=== PATIENT | female | born 1935 | race Caucasian/White ===

== ENCOUNTER 2017-08-07 18:26 | Inpatient (IN) | payer MEDICARE ==
[~2017-08-07] VITALS: Ht 167.6 cm; Wt 68.7 kg
[2017-08-07] VITALS (10 sets, daily range): BP systolic 159–178; BP diastolic 77–104; PULSE 70–92; RESP 16–22; TEMP 98.6; O2SAT 97–100
[~2017-08-07 18:26] MED LIST: PROPOFOL 200 MG/20 ML AMP IV ONE; SODIUM CHLORIDE 0.9% 20 ML VIAL IV ONE; VECURONIUM BROMIDE 20 MG VIAL IV ONE
[2017-08-07] MEDS ORDERED: SODIUM CHLOR 0.9% 1000 ML INJ 1,000 ML IV ONE (18:45)
--- NOTE | 2017-08-07 19:01 | RADRPT ---
EXAM DATE/TIME: 08/07/2017 18:39 [facility] COMPARISON: No previous studies available for comparison. INDICATIONS : Stroke alert, right sided paralysis, unresponsive. RADIATION DOSE: 56.35 CTDIvol (mGy) MEDICAL HISTORY : Non-responsive. SURGICAL HISTORY : Non-responsive. ENCOUNTER: Initial ACUITY: 1 day PAIN SCALE: Non-responsive LOCATION: cranial TECHNIQUE: Multiple contiguous axial images were obtained of the head. Using automated exposure control and adj ustment of the mA and/or kV according to patient size, radiation dose was kept as low as reasonably a chievable to obtain optimal diagnostic quality images. DICOM format image data is available electro nically for review and comparison. FINDINGS: CEREBRUM: The ventricles are normal for age. No evidence of midline shift, mass lesion, hemorrhage or acute in farction. No extra-axial fluid collections are seen. Chronic low attenuation seen in the periventric ular white matter. POSTERIOR FOSSA: The cerebellum and brainstem are intact. The 4th ventricle is midline. The cerebellopontine angle i s unremarkable. EXTRACRANIAL: The visualized portion of the orbits is intact. SKULL: The calvaria is intact. No evidence of skull fracture. CONCLUSION: 1. No acute intracranial abnormality demonstrated. 2. Chronic white matter changes. 3. 4. Report called to Dr. Lira at 6: 5. 57 PM. Eladio Mcdonald MD on August 07, 2017 at 18:58 Board Certified Radiologist. This report was verified electronically.
[2017-08-07] MEDS ORDERED: IOHEXOL 350 MG/ML 10 ML VIAL (for RAD DIAG) IVCONTRAST ONE (19:02)
--- NOTE | 2017-08-07 19:11 | PD ---
HPI Chief Complaint: Stroke Alert Time Seen by Provider: 18:45 Travel History International Travel<30 days: No Contact w/Intl Traveler<30days: No Traveled to known affect area: No History of Present Illness HPI This patient presents as a stroke alert. I'm told that at 6 PM she was eating dinner and then abruptly dropped her silverware and slumped over to the side. I 'm told she takes no blood thinners and has no history of stroke but I was not able to verify that with family members is none are here at the present time. This patient is critically ill. She has no airway. She's clenched her teeth and is gagging on her secretions. She is aphasia so I can get no history or review of systems from her. PFSH Past Medical History Medical History: Unable to Obtain Tetanus Vaccination: Unknown Influenza Vaccination: No ?: Unknown Past Surgical History Surgical History: Unable to Obtain Social History Alcohol Use: No Tobacco Use: No Substance Use: No Allergies-Medications (Allergen,Severity, Reaction): Coded Allergies: No Allergy Information Available (Unverified , 08/07/17) Reported Meds & Prescriptions Reported Meds & Active Scripts Active Active Prescriptions or Reported Medications Unobtainable Review of Systems ROS Limitations: Clinical Condition, Altered Mental Status, Unresponsive Physical Exam Narrative GENERAL: Well-nourished, well-developed patient in no apparent distress. SKIN: Focused skin assessment reveals no rash and nodules. Skin is Warm and dry. HEAD: Atraumatic. Normocephalic. EYES: Pupils equal and round. No scleral icterus. No injection or drainage. ENT: No nasal bleeding or discharge. Mucous membranes pink and moist. NECK: Trachea midline. No JVD. CARDIOVASCULAR: Regular rate and rhythm. No murmur appreciated. RESPIRATORY: No accessory muscle use. Clear to auscultation. Breath sounds equal bilaterally. GASTROINTESTINAL: Abdomen soft, non-tender, nondistended. Hepatic and splenic margins not palpable. MUSCULOSKELETAL: No obvious deformities. No clubbing. No cyanosis. No edema. NEUROLOGICAL: Patient is looking around but will not speak. Her left arm and leg will withdraw to pain stimuli. I can't get her right arm or leg to do much. She has no gag reflex PSYCHIATRIC: Impossible to test mood or affect or insight or judgment . Data Data Last Documented VS Vital Signs Date Time Temp Pulse Resp B/P (MAP) Pulse Ox O2 Delivery O2 Flow Rate FiO2 08/07/17 18:35 98.6 92 22 177/100 (125) 98 Orders Orders Diet Npo (08/07/17 Dinner) Activity Bed Rest (08/07/17 ) Electrocardiogram (08/07/17 ) I-Stat Creatinine (08/07/17 18:45) I-Stat Profile (08/07/17 18:45) Prothrombin Time / Inr (Pt) (08/07/17 18:45) Act Partial Throm Time (Ptt) (08/07/17 18:45) Complete Blood Count With Diff (08/07/17 18:45) Fibrinogen (08/07/17 18:45) Creatine Kinase (Cpk) (08/07/17 18:45) Troponin I (08/07/17 18:45) Ua Includes Microscopic (08/07/17 18:45) Drug Screen, Random Urine (08/07/17 18:45) Type And Screen (08/07/17 18:45) Ct Brain W/O Iv Contrast(Rout) (08/07/17 ) Chest, Single Ap (08/07/17 ) Cta Brain W Iv Contrast W 3d (08/07/17 18:45) Cta Neck W Iv Contrast W 3d (08/07/17 18:45) Consult Neurology (08/07/17 ) Blood Glucose (08/07/17 18:45) Ecg Monitoring (08/07/17 18:45) Neuro Checks Q2HX12,Q4H (08/07/17 18:45) Nursing Bedside Swallow Assess .ONCE (08/07/17 18:45) Iv Access Insert/Monitor (08/07/17 18:45) NPO (08/07/17 18:45) Oximetry (08/07/17 18:45) Oxygen Administration (08/07/17 18:45) Sodium Chlor 0.9% 1000 Ml Inj (Ns 1000 M (08/07/17 18:45) Resp Oxygen Faustino C Titrat 1-4 L (08/07/17 18:45) Cath For Specimen (08/07/17 18:45) Iohexol 350 Inj (Omnipaque 350 Inj) (08/07/17 19:02) MDM Medical Decision Making Medical Screen Exam Complete: Yes Emergency Medical Condition: Yes Medical Record Reviewed: Yes Differential Diagnosis Hemorrhagic stroke, ischemic stroke, loss of airway Narrative Course I have reviewed the patient's electronic medical record. This patient emergently needs an airway That is priority #1 and there will be delaying going to CT because airway takes precedence INTUBATION: The patient was put in optimal position for the procedure. Rapid sequence intubation was initiated by me using 20 milligrams of etomidate IV and 100 milligrams of succinylcholine IV. The patient was intubated with a 7.5 cuffed endotracheal tube. Tube placement was confirmed by visualization of the tube and balloon passing through the cords, capnometry and subsequent chest x-ray. Breath sounds were equal and well aerated bilaterally postintubation. No breath sounds over stomach. Patient tolerated procedure well. 2 IVs placed Now were taking her emergently to CT scan Case is discussed with Dr. Lira, neurologist database consultant for stroke alert CT brain is come back negative for bleed. Dr. Lira this discussing with family whether to do TPA were not Is ending and case reviewed in detail with Dr. Adorno who will take over the case and assist with disposition which will obviously be intensive care admission on ventilator Diagnosis Primary Impression: Acute ischemic stroke Additional Impression: Airway compromise Admitting Information Admitting Physician Requests: Admit Scripts Unable to Obtain Active Prescriptions or Reported Meds Terrell Go MD Aug 07, 2017 19:10
[2017-08-07 19:19] LABS: AUTOMATED NEUTROPHIL # 4.5 TH/MM3 (1.8-7.7); BASOPHIL # 0.1 TH/MM3 (0-0.2); BASOPHIL % 1.2 % (0.0-2.0); EOSINOPHIL # 0.3 TH/MM3 (0-0.4); EOSINOPHIL % 3.8 % (0.0-4.0); HEMATOCRIT 30.3 % (35.0-46.0); HEMOGLOBIN 9.9 GM/DL (11.6-15.3); LYMPH % 27.2 % (9.0-44.0); MEAN CELL VOLUME 84.5 FL (80.0-100.0); MEAN CORPUSCULAR HEMOGLOBIN 27.5 PG (27.0-34.0); MEAN CORPUSCULAR HGB CONC 32.5 % (32.0-36.0); MEAN PLATELET VOLUME 9.2 FL (7.0-11.0); MONO % 8.1 % (0.0-8.0); MONOCYTE # 0.6 TH/MM3 (0-0.9); NEUT % 59.7 % (16.0-70.0); PLATELET COUNT 251 TH/MM3 (150-450); RED BLOOD COUNT 3.59 MIL/MM3 (4.00-5.30); RED CELL DISTRIBUTION WIDTH 12.9 % (11.6-17.2); WHITE BLOOD COUNT 7.5 TH/MM3 (4.0-11.0)
--- NOTE | 2017-08-07 19:20 | RADRPT ---
EXAM DATE/TIME: 08/07/2017 18:49 [facility] COMPARISON: No previous studies available for comparison. INDICATIONS : Stroke alert, right sided paralysis. IV CONTRAST: 75 cc Omnipaque 350 (iohexol) IV ; Cumulative dose for multiple exams. RADIATION DOSE: 8.84 CTDIvol (mGy) ; Combined studies MEDICAL HISTORY : Non-responsive. SURGICAL HISTORY : Non-responsive. ENCOUNTER: Initial ACUITY: 1 day PAIN SCALE: Non-responsive LOCATION: cranial TECHNIQUE: Volumetric scanning was performed using a multi-row detector CT scanner. The data was post processed with a variety of visualization algorithms including full volume maximum intensity projection, multi -planar sliding thin slab reformation, curved planar reformation, and surface rendering techniques. Using automated exposure control and adjustment of the mA and/or kV according to patient size, radiat ion dose was kept as low as reasonably achievable to obtain optimal diagnostic quality images. DICO M format image data is available electronically for review and comparison. FINDINGS: There is complete occlusion distally of the left middle cerebral artery, just proximal to the trifurc ation. Other intracranial arteries have normal course and caliber. No aneurysms. CONCLUSION: Occluded left middle cerebral artery. Report called to Dr. Lira. Eladio Mcdonald MD on August 07, 2017 at 19:13 Board Certified Radiologist. This report was verified electronically.
[2017-08-07 19:23] LABS: INTERNATIONAL NORMALIZED RATIO 1.1 RATIO; PROTHROMBIN TIME - PATIENT 11.4 SEC (9.8-11.6)
[2017-08-07] MEDS ORDERED: ALTEPLASE BOLUS 9 MG/9 ML SYR IV ONE (19:30)
[2017-08-07] MEDS ORDERED: SODIUM CHLORIDE 0.9% 50 ML BAG IVF ONE (19:30)
[2017-08-07] MEDS ORDERED: MISCELLANEOUS NURSING INFORMATION XX PRN (19:30)
[2017-08-07] MEDS ORDERED: ALTEPLASE DRIP IV ONE (19:30)
--- NOTE | 2017-08-07 19:33 | RADRPT ---
EXAM DATE/TIME: 08/07/2017 19:02 [facility] COMPARISON: No previous studies available for comparison. INDICATIONS : Post intubation. Stroke alert. MEDICAL HISTORY : Non-responsive. SURGICAL HISTORY : Non-responsive. ENCOUNTER: Initial ACUITY: 1 day PAIN SCORE: Non-responsive. LOCATION: Bilateral chest FINDINGS: Trace atelectasis seen in the bases. No large effusion. No pneumothorax. Endotracheal tube tip is 3 cm above the janina. CONCLUSION: Minimal bibasilar atelectasis. Appropriate endotracheal tube tip position. Eladio Mcdonald MD on August 07, 2017 at 19:30 Board Certified Radiologist. This report was verified electronically.
[2017-08-07 19:41] LABS: TROPONIN I LESS THAN 0.02 NG/ML (0.02-0.05)
--- NOTE | 2017-08-07 19:43 | RADRPT ---
EXAM DATE/TIME: 08/07/2017 18:49 [facility] COMPARISON: No previous studies available for comparison. INDICATIONS : Stroke alert, right sided paralysis. IV CONTRAST: 75 cc Omnipaque 350 (iohexol) IV ; Cumulative dose for multiple exams. RADIATION DOSE: 8.84 CTDIvol (mGy) ; Combined studies MEDICAL HISTORY : Non-responsive. SURGICAL HISTORY : Non-responsive. ENCOUNTER: Initial ACUITY: 1 day PAIN SCALE: Non-responsive LOCATION: neck Elevated flow velocities and ICA/CCA ratios have been found to correlate with increased degrees of vessel stenosis, calculated as percentage of diameter relative to a normal segment of distal ICA/CCA. TECHNIQUE: Volumetric scanning was performed using a multirow detector CT scanner. The data was post processed with a variety of visualization algorithms including full-volume maximum intensity projection, multip lanar sliding thin-slab reformation, curved-planar reformation, and surface-rendering techniques. Us ing automated exposure control and adjustment of the mA and/or kV according to patient size, radiatio n dose was kept as low as reasonably achievable to obtain optimal diagnostic quality images. DICOM f ormat image data is available electronically for review and comparison. FINDINGS: AORTIC ARCH: There is a three-vessel origin of the great vessels from the aorta. No evidence of ostial narrowing. RIGHT CAROTID: The common carotid artery is intact. The carotid bulb has a normal configuration without ulceration o r narrowing; trace atherosclerotic plaque seen in the bulb and proximal ICA.. The internal carotid ar kalani lumen is smooth without stenosis. The external carotid artery is intact. LEFT CAROTID: The common carotid artery is intact. The carotid bulb has a normal configuration without ulceration or narrowing; trace atherosclerotic plaque seen of the bulb and proximal ICA.. The internal carotid artery lumen is smooth without stenosis. The external carotid artery is intact. VERTEBRALS: The vertebral arteries have a symmetric diameter. No stenotic lesions are seen. The esophagus is distended and fluid-filled. CONCLUSION: 1. Minimal atherosclerotic disease of both carotid bifurcations. There is no narrowing or other acute abnormality. 2. Distended and fluid-filled esophagus. Eladio Mcdonald MD on August 07, 2017 at 19:40 Board Certified Radiologist. This report was verified electronically.
[2017-08-07] MEDS ORDERED: PROPOFOL 1000 MG/100 ML INJ 100 ML IV PRN (19:45)
[2017-08-07] MEDS ORDERED: VERAPAMIL HCL 5 MG/2 ML VIAL ONE (20:06)
[2017-08-07] MEDS ORDERED: BISACODYL 10 MG SUPP RECTAL PRN (20:15)
[2017-08-07] MEDS ORDERED: MAGNESIUM HYDROXIDE SUSP 30 ML CUP PO PRN (20:15)
[2017-08-07] MEDS ORDERED: ACETAMINOPHEN 325 MG TAB PO PRN (20:15)
[2017-08-07] MEDS ORDERED: MISCELLANEOUS NURSING INFORMATION XX SCH (20:15)
[2017-08-07] MEDS ORDERED: LACTULOSE SYRUP 20 GM/30 ML CUP PO PRN (20:15)
[2017-08-07] MEDS ORDERED: SENNOSIDES 8.6 MG TAB PO PRN (20:15)
[2017-08-07] MEDS ORDERED: SODIUM CHLORIDE 0.9% FLUSH 10 ML FLUSH IV FLUSH PRN (20:15)
[2017-08-07] MEDS ORDERED: CHLORHEXIDINE GLUCONATE 2 % 1 PACK (2 CLOTHS) TOP PRN (20:15)
[2017-08-07] MEDS ORDERED: ONDANSETRON HCL 4 MG/2 ML VIAL IV PUSH PRN (20:15)
[2017-08-07] MEDS ORDERED: MIDAZOLAM HCL 2 MG/2 ML VIAL IV PUSH PRN (20:15)
--- NOTE | 2017-08-07 20:28 | HHI.HP ---
HPI Service Critical Care Medicine Primary Care Physician Unknown Admission Diagnosis CVA on tPa Diagnosis: Travel History International Travel<30 Days: No Contact w/Intl Traveler <30 Da: No Traveled to Known Affected Are: No History of Present Illness 81-year-old female presents as a stroke alert. At 6 PM she was eating dinner and then abruptly dropped her silverware and slumped over to the side. She was intubated immediately in the emergency department for an airway protection due to inability to protect her airways. The CTA showed Left M1 occlusion for which patient received the TPA infusion and went immediately to IR where the artery was cleared with suction thrombectomy. Review of Systems ROS Unobtainable patient is sedated and intubated Past Family Social History Allergies: Coded Allergies: No Allergy Information Available (Unverified , 08/07/17) Past Medical History Unobtainable Past Surgical History Unobtainable Reported Medications Reported Meds & Active Scripts Active Active Prescriptions or Reported Medications Unobtainable Active Ordered Medications Current Medications Medications (Trade) Dose Ordered Sig/Geovani Route PRN Reason Start Time Stop Time Status Last Admin Dose Admin Sodium Chloride 1,000 ml @ 70 mls/hr [id number] ONCE IV 08/07/17 18:45 08/08/17 09:02 Future Hold 08/07/17 19:25 Miscellaneous Information No Heparin, Warfarin, Aspir... UNSCH PRN XX SEE DOSE INSTRUCTIONS 08/07/17 19:30 08/08/17 19:29 Sodium Chloride 1,000 ml @ 84 mls/hr [id number] IV 08/07/17 20:05 Sodium Chloride (NS Flush) 2 ml UNSCH PRN IV FLUSH FLUSH AFTER USING IV ACCESS 08/07/17 20:15 Sodium Chloride (NS Flush) 2 ml BID IV FLUSH 08/07/17 21:00 08/07/17 21:00 Acetaminophen (Tylenol) 650 mg Q6H PRN PO PAIN 1-10 AND/OR FEVER >101F 08/07/17 20:15 Famotidine (Pepcid Inj) 20 mg Q12HR IV PUSH 08/07/17 21:00 08/07/17 22:03 Midazolam HCl (Versed Inj) 2 mg Q1H PRN IV PUSH SEDATION 08/07/17 20:15 Artificial Tears (Tears Naturale Opth Soln) 1 drop TID EACH EYE 08/08/17 09:00 Ondansetron HCl (Zofran Inj) 4 mg Q6H PRN IV PUSH NAUSEA OR VOMITING 08/07/17 20:15 Albuterol/ Ipratropium (Duoneb Neb) 1 ampule Q2HR NEB PRN INH WHEEZING 08/07/17 20:15 Heparin Sodium (Porcine) (Heparin Inj) 5,000 units Q12H SQ 08/08/17 21:00 Miscellaneous Information 1 [id number] XX 08/07/17 20:15 Chlorhexidine Gluconate (Chlorhexidine 2% Cloth) 3 pack Taper DAILY@04 TOP 08/08/17 04:00 08/04/18 03:59 Chlorhexidine Gluconate (Chlorhexidine 2% Cloth) 3 pack UNSCH PRN TOP HYGIENIC CARE 08/07/17 20:15 Senna/Docusate Sodium (Nuria-Colace) 1 tab BID PO 08/07/17 21:00 Magnesium Hydroxide (Milk Of Magnesia Liq) 30 ml Q12H PRN PO Mild constipation 08/07/17 20:15 Sennosides (Senokot) 17.2 mg Q12H PRN PO Moderate constipation 08/07/17 20:15 Bisacodyl (Dulcolax Supp) 10 mg DAILY PRN RECTAL SEVERE CONSITIPATION 08/07/17 20:15 Lactulose (Lactulose Liq) 30 ml DAILY PRN PO SEVERE CONSITIPATION 08/07/17 20:15 Chlorhexidine Gluconate (Peridex 0.12% Liq) 15 ml BID@08,20 MT 08/08/17 08:00 Propofol 100 ml @ 1.941 mls/ hr TITRATE PRN IV SEDATION 08/07/17 20:15 08/07/17 22:03 Family History Unobtainable Social History Unobtainable Physical Exam Vital Signs Vital Signs Date Time Temp Pulse Resp B/P (MAP) Pulse Ox O2 Delivery O2 Flow Rate FiO2 08/07/17 20:05 08/07/17 20:00 99 100 08/07/17 19:42 100 08/07/17 19:15 79 20 159/104 (122) 97 Ventilator 08/07/17 18:55 70 20 178/81 (113) 97 Ventilator 08/07/17 18:46 90 22 177/101 (126) 97 Venturi Mask 08/07/17 18:37 100 08/07/17 18:37 100 100 08/07/17 18:37 90 16 177/101 (126) 97 Room Air 08/07/17 18:35 98.6 92 22 177/100 (125) 98 08/07/17 18:26 92 16 159/78 (105) 97 Room Air Physical Exam GENERAL: Elderly female sedated and intubated SKIN: Focused skin assessment reveals no rash and nodules. Skin is Warm and dry. HEAD: Atraumatic. Normocephalic. EYES: Pupils equal and round. No scleral icterus. No injection or drainage. ENT: No nasal bleeding or discharge. Mucous membranes pink and moist. NECK: Trachea midline. No JVD. CARDIOVASCULAR: Regular rate and rhythm. No murmur appreciated. RESPIRATORY: No accessory muscle use. Clear to auscultation. Breath sounds equal bilaterally. GASTROINTESTINAL: Abdomen soft, non-tender, nondistended. Hepatic and splenic margins not palpable. MUSCULOSKELETAL: No obvious deformities. No clubbing. No cyanosis. No edema. NEUROLOGICAL: Patient is looking around but will not speak. Her left arm and leg will withdraw to pain stimuli. She sedated and intubated. Laboratory Laboratory Tests Test 08/07/17 18:30 White Blood Count 7.5 Red Blood Count 3.59 Hemoglobin 9.9 Bedside Hemoglobin 10.2 Hematocrit 30.3 Bedside Hematocrit 30.0 Mean Corpuscular Volume 84.5 Mean Corpuscular Hemoglobin 27.5 Mean Corpuscular Hemoglobin Concent 32.5 Red Cell Distribution Width 12.9 Platelet Count 251 Mean Platelet Volume 9.2 Neutrophils (%) (Auto) 59.7 Lymphocytes (%) (Auto) 27.2 Monocytes (%) (Auto) 8.1 Eosinophils (%) (Auto) 3.8 Basophils (%) (Auto) 1.2 Neutrophils # (Auto) 4.5 Lymphocytes # (Auto) 2.0 Monocytes # (Auto) 0.6 Eosinophils # (Auto) 0.3 Basophils # (Auto) 0.1 CBC Comment DIFF FINAL Differential Comment Prothrombin Time 11.4 Prothromb Time International Ratio 1.1 Activated Partial Thromboplast Time 24.6 Fibrinogen 375 Bedside Sodium 140 Bedside Potassium 4.2 Bedside Chloride 104 Bedside Blood Urea Nitrogen 18 Bedside Creatinine 1.0 Bedside Glucose 99 Total Creatine Kinase 73 Troponin I LESS THAN 0.02 Result Diagram: 08/07/17 1830 Imaging Last 24 hours Impressions Neck CTA 08/07/17 1845 Signed Impressions: Service Date/Time: July 18:49 - CONCLUSION: 1. Minimal atherosclerotic disease of both carotid bifurcations. There is no narrowing or other acute abnormality. 2. Distended and fluid-filled esophagus. Eladio Mcdonald MD Head CTA 08/07/17 1845 Signed Impressions: Service Date/Time: July 18:49 - CONCLUSION: Occluded left middle cerebral artery. Report called to Dr. Lira. Eladio Mcdonald MD Head CT 08/07/17 0000 Signed Impressions: Service Date/Time: July 18:39 - CONCLUSION: 1. No acute intracranial abnormality demonstrated. 2. Chronic white matter changes. 3. 4. Report called to Dr. Lira at 6: 5. 57 PM. Eladio Mcdonald MD Chest X-Ray 08/07/17 0000 Signed Impressions: Service Date/Time: July 19:02 - CONCLUSION: Minimal bibasilar atelectasis. Appropriate endotracheal tube tip position. Eladio Mcdonald MD Septic Shock Reassessment Septic shock perfusion: reassessment completed Caprini VTE Risk Assessment Caprini VTE Risk Assessment: Mod/High Risk (score >= 2) Caprini Risk Assessment Model Point Value = 1 Point Value = 2 Point Value = 3 Point Value = 5 Age 41-60 Minor surgery BMI > 25 kg/m2 Swollen legs Varicose veins or History of unexplained or recurrent spontaneous Oral contraceptives or hormone replacement Sepsis (< 1 month) Serious lung disease, including pneumonia (< 1 month) Abnormal pulmonary function Acute myocardial infarction Congestive heart failure (< 1 month) History of inflammatory bowel disease Medical patient at bed rest Age 61-74 Arthroscopic surgery Major open surgery (> 45 min) Laparoscopic surgery (> 45 min) Malignancy Confined to bed (> 72 hours) Immobilizing plaster cast Central venous access Age >= 75 History of VTE Family history of VTE Factor V Leiden Prothrombin [id number] Lupus anticoagulant Anticardiolipin antibodies Elevated serum homocysteine Heparin-induced thrombocytopenia Other congenital or acquired thrombophilia Stroke (< 1 month) Elective arthroplasty Hip, pelvis, or leg fracture Acute spinal cord injury (< 1 month) Prophylaxis Regimen Total Risk Factor Score Risk Level Prophylaxis Regimen 0-1 Low Early ambulation 2 Moderate Order ONE of the following: *Sequential Compression Device (SCD) *Heparin 5000 units SQ BID 3-4 Higher Order ONE of the following medications: *Heparin 5000 units SQ TID *Enoxaparin/Lovenox 40 mg SQ daily (WT < 150 kg, CrCl > 30 mL/min) *Enoxaparin/Lovenox 30 mg SQ daily (WT < 150 kg, CrCl > 10-29 mL/min) *Enoxaparin/Lovenox 30 mg SQ BID (WT < 150 kg, CrCl > 30 mL/min) AND/OR *Sequential Compression Device (SCD) 5 or more Highest Order ONE of the following medications: *Heparin 5000 units SQ TID (Preferred with Epidurals) *Enoxaparin/Lovenox 40 mg SQ daily (WT < 150 kg, CrCl > 30 mL/min) *Enoxaparin/Lovenox 30 mg SQ daily (WT < 150 kg, CrCl > 10-29 mL/min) *Enoxaparin/Lovenox 30 mg SQ BID (WT < 150 kg, CrCl > 30 mL/min) AND *Sequential Compression Device (SCD) Assessment and Plan Assessment and Plan Respiratory failure - Intubated for airway protection - No weaning until neurologically improved - Vent bundle - DuoNeb's when necessary - CXR and ABG daily Acute left MCA CVA - Status post TPA infusion - Status post embolectomy in the IR - PT and OT - Management per neurology Dr. Lira - Aspirin to start 24-hour after TPA infusion Hypertension - Labetalol and hydralazine when necessary to keep SBP less than 180 - We'll start Cardene drip if needed DVT GI prophylaxis - Teds SCDs - Subcutaneous heparin to start 24 hours after TPA administration - Pepcid Critical Care: The total critical care time was 35 minutes. Time to perform other separately billable procedures was not included in the critical care time. Jose Li MD Aug 07, 2017 8:28 pm
[2017-08-07] MEDS: SODIUM CHLORIDE 0.9% FLUSH 10 ML FLUSH IV FLUSH SCH (21:00)
[2017-08-07] MEDS: DOCUSATE SODIUM 50 MG/SENNA 8.6 MG TAB PO SCH (21:00)
--- NOTE | 2017-08-07 21:18 | PD.RAD ---
Post Procedure Progress Note Pre Procedure Diagnosis: (1) Acute ischemic stroke Post Procedure Diagnosis: (1) Acute ischemic stroke Procedure Date: Aug 07, 2017 Supervising Radiologist: Ghulam Rao Anesthesia: General Plan of Activity Patient to Unit: Critical Care Patient Condition: Good Additional Comments: Left M1 occlusion. Cleared with suction thrombectomy. See PACS Report for procedural detail/treatment Ghulam Rao MD Aug 07, 2017 21:18
[2017-08-07] MEDS: FAMOTIDINE 20 MG/2 ML VIAL IV PUSH SCH (22:03)
[2017-08-07] MEDS ORDERED: IODIXANOL 320 MG/ML 50 ML VIAL (for RAD SPEC) I-ARTERIAL ONE (22:03)
[2017-08-07] MEDS: PROPOFOL 1000 MG/100 ML INJ 100 ML IV PRN (22:03)
--- NOTE | 2017-08-07 22:18 | MB ---
cc: NEREYDA ORNELAS DATE OF CONSULTATION 08/07/17 The patient was a call for acute stroke alert. She was just intubation in the emergency room. There is no history coming in from the security intern just at this onset 10 minutes prior to the time security intern got there at about roughly 6 o'clock that she slumped over. She was thought to be weak on the right side from the ER doctor and he subsequently thought she needed to be intubated. There was a question of some clenching of the jaw and she has just been intubated and sedated. PHYSICAL EXAMINATION On exam there were no carotid bruits. Heart was regular rhythm with a 1/6 systolic ejection murmur. The pupil is slightly irregular, looks like she probably had cataracts before. She is unresponsive in coma. She does appear to be blocking the vent slightly. Her toes are downgoing bilaterally. There is no ankle clonus. I did not detect any major change between the sides, but she is flaccid throughout. Labs are all pending. PAST MEDICAL HISTORY There is no past medical history. She is currently in CAT scan. IMPRESSION Possible stroke alert, certainly could be a TPA candidate. We will see what the CT CTA shows. MD JOLYNN Duron/ /6:49 PM /9:48 PM
--- NOTE | 2017-08-07 22:18 | MB ---
cc: NEREYDA ORNELAS DATE OF CONSULTATION 08/07/17 ADDENDUM The patient is right handed, really has been totally healthy, just take a Valium for low back pain. Does not take any blood thinners. At about 5:50 today she was at home when suddenly he thought the left side of her face was droopy, seemed to drop her dinner and then went over and stood by the table, was sort of making some movements with her arms and then he thought her right arm maybe was a little drawn up, no seizure activity. REVIEW OF SYSTEMS Denied any history of hypertension, diabetes, hypercholesterolemia, [place], coronary artery bypass graft, cardiac arrhythmia, renal, hepatic or pulmonary disease, thyroid disease, lupus, ulcer, cancer, seizure, stroke. SOCIAL HISTORY Not a smoker or a drinker, lives with her son. FAMILY HISTORY Positive for cancer in her grandfather. Negative for seizure or stroke. MEDICATIONS Just the Valium. She does not take any aspirin or blood thinners. IMPRESSION The CT was negative. The CTA shows a blockage of the distal left middle cerebral artery. I have gone ahead and given her IV TPA and we will consider intra-arterial extraction. The interventional team is supposed to call me shortly. I already talked with the radiologist. I note in her labs her stat labs so far are normal. It did talk with her son about this and he is agreeable to go ahead with the TPA. MD JOLYNN Duron/ /7:14 PM /9:58 PM
[2017-08-07 22:39] LABS: AMORPHOUS SEDIMENT, URINE RARE; BILIRUBIN, URINE NEG (NEG); BLOOD, URINE TRACE (NEG); GLUCOSE,URINE NEG (NEG); KETONE, URINE NEG (NEG); MUCUS URINE FEW /lpf (OCC); NITRITE,URINE NEG (NEG); PH, URINE 5.5 (5.0-8.5); SQUAMOUS EPITHELIAL CELL URINE <1 /hpf (0-5); URINE COLOR YELLOW (YELLW/STRAW); URINE LEUKOCYTE ESTERASE NEG (NEG)
[2017-08-07] MEDS: LABETALOL HCL 100 MG/20 ML VIAL IV PUSH PRN (23:25)
[2017-08-07] MEDS ORDERED: hydrALAZINE HCL 20 MG/ML VIAL IV PUSH PRN (23:30)
[2017-08-08] VITALS (18 sets, daily range): BP systolic 115–174; BP diastolic 54–81; PULSE 66–129; RESP 15–23; TEMP 97.2–100.1; O2SAT 99–100
[2017-08-08] MEDS: LABETALOL HCL 100 MG/20 ML VIAL IV PUSH PRN (01:03)
[2017-08-08 01:31] LABS: FREE T4 1.21 NG/DL (0.76-1.46)
[2017-08-08] MEDS: CHLORHEXIDINE GLUCONATE 2 % 1 PACK (2 CLOTHS) TOP SCH (04:00)
--- NOTE | 2017-08-08 05:15 | RADRPT ---
EXAM DATE/TIME: 08/08/2017 03:39 [facility] COMPARISON: CHEST SINGLE AP, August 07, 2017, 19:02. INDICATIONS : Respiratory failure. MEDICAL HISTORY : Unable to obtain. SURGICAL HISTORY : ENCOUNTER: Subsequent ACUITY: 2 days PAIN SCORE: Non-responsive. LOCATION: Bilateral chest FINDINGS: The endotracheal tube remains in place. There is no pneumothorax. There is an infiltrate in the left lung base. Otherwise the lungs are grossly clear. The heart size is stable. There are no definite ple ural effusions. The bony structures are stable. CONCLUSION: Focal infiltrate in the left lung base. Nj Malik MD on August 08, 2017 at 5:12 Board Certified Radiologist. This report was verified electronically.
[2017-08-08] MEDS: CHLORHEXIDINE 0.12% (ORAL KIT) 15 ML CUP MT SCH ×2 (08:00→20:46)
[2017-08-08] MEDS: SODIUM CHLOR 0.9% 1000 ML INJ 1,000 ML IV SCH ×3 (08:00→19:55)
[2017-08-08] MEDS ORDERED: SODIUM CHLOR 0.9% 1000 ML INJ 1,000 ML IV SCH (08:07)
--- NOTE | 2017-08-08 08:09 | HHI.PR ---
Subjective Remarks sr Objective Vital Signs Date Time Temp Pulse Resp B/P (MAP) Pulse Ox O2 Delivery O2 Flow Rate FiO2 08/08/17 06:00 78 08/08/17 04:08 100 40 08/08/17 04:00 99.9 80 23 115/54 (74) 100 08/08/17 04:00 79 08/08/17 04:00 40 08/08/17 02:00 70 08/08/17 01:06 100 40 08/08/17 00:00 72 08/08/17 00:00 97.2 72 16 174/81 (112) 100 08/07/17 21:40 100 50 08/07/17 21:30 40 08/07/17 21:30 78 08/07/17 21:30 78 16 169/77 (107) 100 08/07/17 20:05 08/07/17 20:00 99 100 08/07/17 19:42 100 08/07/17 19:30 100 100 08/07/17 19:15 79 20 159/104 (122) 97 Ventilator 08/07/17 18:55 70 20 178/81 (113) 97 Ventilator 08/07/17 18:46 90 22 177/101 (126) 97 Venturi Mask 08/07/17 18:37 100 08/07/17 18:37 100 100 08/07/17 18:37 90 16 177/101 (126) 97 Room Air 08/07/17 18:35 98.6 92 22 177/100 (125) 98 08/07/17 18:26 92 16 159/78 (105) 97 Room Air I/O 08/07/17 08/07/17 08/07/17 08/08/17 08/08/17 08/08/17 07:00 15:00 23:00 07:00 15:00 23:00 Intake Total 814 ml Output Total 350 ml Balance 464 ml Intake IV Total 814 ml Output Urine Total 350 ml Result Diagram: 08/07/171829 Objective Remarks withdraws lle better than rle dip sedated on vent Assessment and Plan Assessment and Plan imp sp tpa and clot removal check mri fu echo and holter Dennis Lira MD Aug 08, 2017 08:09
[2017-08-08] MEDS: DOCUSATE SODIUM 50 MG/SENNA 8.6 MG TAB PO SCH ×2 (09:00→20:46)
[2017-08-08] MEDS: FAMOTIDINE 20 MG/2 ML VIAL IV PUSH SCH ×2 (09:53→20:46)
[2017-08-08] MEDS: SODIUM CHLORIDE 0.9% FLUSH 10 ML FLUSH IV FLUSH SCH ×2 (09:53→20:46)
[2017-08-08] MEDS: ARTIFICIAL TEARS OPTH SOLN 15 ML BTL EACH EYE SCH ×3 (10:20→18:00)
--- NOTE | 2017-08-08 11:37 | ECHRPT ---
Indication: cva/tia CONCLUSIONS Normal left ventricular size. Mild mitral valve regurgitation. There is mild tricuspid valve regurgitation. BP: / HR: Rhythm: MEASUREMENTS (Male / Female) Normal Values Technical Quality:Fair 2D ECHO LV Diastolic Diameter PLAX 3.7 cm 4.2 - 5.9 / 3.9 - 5.3 cm LV Systolic Diameter PLAX 2.6 cm IVS Diastolic Thickness 1.3 cm 0.6 - 1.0 / 0.6 - 0.9 cm LVPW Diastolic Thickness 0.9 cm 0.6 - 1.0 / 0.6 - 0.9 cm LV Relative Wall Thickness 0.6 RV Internal Dim ED PLAX 2.2 cm M-MODE Aortic Root Diameter MM 2.9 cm LA Systolic Diameter MM 2.8 cm LA Ao Ratio MM 1.0 AV Cusp Separation MM 1.7 cm DOPPLER Mitral E Point Velocity 106.0 cm/s Mitral A Point Velocity 46.9 cm/s Mitral E to A Ratio 2.3 LV E' Lateral Velocity 8.3 cm/s Mitral E to LV E' Lateral Ratio 12.8 LV E' Septal Velocity 8.4 cm/s Mitral E to LV E' Septal Ratio 12.6 TR Peak Velocity 289.0 cm/s TR Peak Gradient 33.4 mmHg Right Atrial Pressure 10.0 mmHg Pulmonary Artery Systolic Pressu 43.4 mmHg Right Ventricular Systolic Press 43.4 mmHg FINDINGS LEFT VENTRICLE Normal left ventricular size. The left ventricular systolic function is normal with an estimated ejection fraction in the range of 60-65%. RIGHT VENTRICLE Normal right ventricular size and systolic function. LEFT ATRIUM The left atrial size is normal. RIGHT ATRIUM The right atrial size is normal. ATRIAL SEPTUM Normal atrial septal thickness without atrial level shunting by limited color doppler interrogation. AORTA The aortic root and proximal ascending aorta are normal in size on limited imaging. MITRAL VALVE Structurally normal mitral valve. Mild mitral valve regurgitation. AORTIC VALVE Trileaflet aortic valve. No aortic valve stenosis or regurgitation. TRICUSPID VALVE Structurally normal tricuspid valve. There is mild tricuspid valve regurgitation. PULMONARY VALVE No pulmonary valve regurgitation or stenosis. VESSELS The inferior vena cava is normal in size. PERICARDIUM No pericardial effusion. Marcelo Mirza MD, FACC (Electronically Signed) Final Date:08 August 2017 11:36
--- NOTE | 2017-08-08 11:38 | HHI.CCPN ---
Subjective Remarks/Hospital Course 81-year-old female presents as a stroke alert. At 6 PM she was eating dinner and then abruptly dropped her silverware and slumped over to the side. She was intubated immediately in the emergency department for an airway protection due to inability to protect her airways. The CTA showed Left M1 occlusion for which patient received the TPA infusion and went immediately to IR where the artery was cleared with suction thrombectomy. 08/08: On ventilator, will hold sedation. Breathes spontaneously with vigor. Objective Vital Signs Date Time Temp Pulse Resp B/P (MAP) Pulse Ox O2 Delivery O2 Flow Rate FiO2 08/08/17 08:07 100 40 08/08/17 07:00 Mechanical Ventilator 08/08/17 06:00 78 08/08/17 04:00 99.9 23 115/54 (74) Intake and Output 08/08/17 08/08/17 08/09/17 08:00 16:00 00:00 Intake Total 814 ml Output Total 350 ml Balance 464 ml Result Diagram: 08/07/17 1830 Imaging Last 24 hours Impressions Neck CTA 08/07/171844 Signed Impressions: Service Date/Time: July 18:49 - CONCLUSION: 1. Minimal atherosclerotic disease of both carotid bifurcations. There is no narrowing or other acute abnormality. 2. Distended and fluid-filled esophagus. Eladio Mcdonald MD Head CTA 08/07/171844 Signed Impressions: Service Date/Time: July 18:49 - CONCLUSION: Occluded left middle cerebral artery. Report called to Dr. Lira. Eladio Mcdonald MD Head CT 08/07/17 0000 Signed Impressions: Service Date/Time: July 18:39 - CONCLUSION: 1. No acute intracranial abnormality demonstrated. 2. Chronic white matter changes. 3. 4. Report called to Dr. Lira at 6: 5. 57 PM. Eladio Mcdonald MD Chest X-Ray 08/07/17 0000 Signed Impressions: Service Date/Time: July 19:02 - CONCLUSION: Minimal bibasilar atelectasis. Appropriate endotracheal tube tip position. Eladio Mcdonald MD Objective Remarks GENERAL: Elderly female, intubated SKIN: Focused skin assessment reveals no rash and nodules. Skin is Warm and dry. HEAD: Atraumatic. Normocephalic. EYES: Pupils equal and round. Reactive. ENT: No nasal bleeding or discharge. Mucous membranes pink and moist. NECK: Trachea midline. Orally intubated. CARDIOVASCULAR: Regular rate and rhythm. No murmur appreciated. No JVD. RESPIRATORY: No accessory muscle use. Clear to auscultation. Breath sounds equal bilaterally. GASTROINTESTINAL: Abdomen soft, non-tender, nondistended. No guarding. MUSCULOSKELETAL: No obvious deformities. No clubbing. No cyanosis. No edema. NEUROLOGICAL: Patient is looking around, tracks with eyes. Her left arm and leg will withdraw to any stimuli. Right side minimally responsive. A/P Assessment and Plan Respiratory failure - Intubated for airway protection - No weaning until neurologically improved - Vent bundle - DuoNeb's when necessary - CXR and ABG daily Acute left MCA CVA - Status post TPA infusion - Status post embolectomy in the IR - PT and OT - Management per neurology Dr. Lira - Aspirin to start 24-hour after TPA infusion Hypertension - Labetalol and hydralazine when necessary to keep SBP less than 180 - We'll start Cardene drip if needed DVT GI prophylaxis - Teds SCDs - Subcutaneous heparin to start 24 hours after TPA administration - Pepcid Overall impression: Remains critically ill following left hemispheric ischemic stroke. Unable to wean from mechanical ventilation. Critical Care 40 mins Onesimo Aldana MD Aug 08, 2017 11:38
--- NOTE | 2017-08-08 11:57 | RADRPT ---
EXAM DATE/TIME: 08/07/2017 20:00 [facility] COMPARISON: No previous studies available for comparison. INDICATIONS : Stroke Alert MEDICAL HISTORY : Stroke alert SURGICAL HISTORY : unobtainable ENCOUNTER: Initial ACUITY: 1 day PAIN SCORE: Nonresponsive. FLUORO TIME: 20.4 minutes IMAGE SERIES: 7 ACCESS SITE: Right Femoral artery CONTRAST: 50 cc Visipaque (iodixanol) DEVICE(S): 1.) Left middle cerebral artery 068 [place] TIMELINE: Interventional team called: 7:22 pm Interventional team arrived: 7:45 pm Interventional team ready: 7:45 pm Patient arrival: 8:05 pm Groin puncture: 8:15 pm Recanalization: 9:04 pm Anesthesia and pain control was provided by the Anesthesia department. PROCEDURE : 1. Ultrasound-guided puncture of the access site. 2. Conscious sedation with continuous EKG and Oximetry monitoring. 3. Subselective catheter placement in the left internal carotid artery with cerebral angiography 4. Suction thrombectomy of thrombus in the left distal M1 segment. The risks, benefits and alternatives to the procedure were explained and verbal and written consent w as obtained. The site was prepped in sterile fashion. Full sterile technique was used, including ca p, mask, sterile gloves and gown and a large sterile sheet. Hand hygiene and 2% chlorhexidine and/or betadine/alcohol prep was utilized per protocol for cutaneous antisepsis. Sterile gel and sterile p robe cover were utilized for ultrasound guidance. The skin and subcutaneous tissues were infiltrated with local anesthetic solution. With ultrasound and fluoroscopic guidance the selected artery was punctured and a 7 Welsh 70 cm vasc ular sheath was placed. Gilman 2 catheter was advanced into the left common carotid artery and follo wing multiple manipulations are sufficient to wire access was obtained to allow for placement of 8 Fr ench neuron Max sheath into the left internal carotid artery. Next, an CHRISTINE 68 suction thrombectomy ca theter was advanced into the distal cervical segment of internal carotid artery and cerebral angiogra phy was performed. This confirmed findings of occlusive thrombus in the distal left M1 segment. Appro ximate catheter and wire were then advanced through the thrombosed M1 segment and small hand injectio n and exam was performed confirming patency of the distal M2 branches. Next, the CHRISTINE 68 thrombectomy catheter was advanced to the face of the thrombus and following 2 minutes of suction was slowly retri eved. Followup cerebral angiography demonstrated TICI 3 at revascularization of the left middle cereb ral arteries. Therefore, wires and catheters were removed. A left femoral puncture site was subsequen tly closed with 8 Welsh Angio-Seal device. The patient tolerated the procedure well and there were no complications. CONCLUSION: 1. Technically successful suction thrombectomy and TICI-3 revascularization of the distal left M1 thr ombus. Ghulam Rao MD on August 08, 2017 at 11:48 Board Certified Radiologist. This report was verified electronically.
--- NOTE | 2017-08-08 14:00 | RADRPT ---
EXAM DATE/TIME: 08/08/2017 13:05 [facility] COMPARISON: CTA BRAIN W 3D RECON, August 07, 2017, 18:49. INDICATIONS : Stroke alert. CONTRAST: 13 cc Omniscan (gadodiamide) IV MEDICAL HISTORY : None. SURGICAL HISTORY : Thrombectomy. ENCOUNTER: Initial ACUITY: 2 day PAIN SCORE: Nonresponsive. LOCATION: head TECHNIQUE: Multiplanar, multisequence MRI of the brain was performed both prior to and following the administrat ion of paramagnetic contrast. FINDINGS: There are multiple areas of focally restricted diffusion with accompanying T2 prolongation consistent with subacute age infarctions including involvement of the left caudate and lentiform nucleus, a tin y cortical focus in the high convexity left frontal region and portions of the posterior insular elif ex and high convexity posterior frontal cortex on the right. There is a small focus of susceptibility within the left lentiform nucleus consistent with microhemorrhage. There is no evidence of brain mass or macroscopic hemorrhage. The ventricles are symmetric and normal . No abnormal extra-axial fluid accumulation is identified. There is fluid in the posterior nasal cavity and nasopharynx. CONCLUSION: Bilateral subacute age infarctions. Eladio Noyola MD on August 08, 2017 at 13:40 Board Certified Radiologist. This report was verified electronically.
--- NOTE | 2017-08-08 14:18 | EKG ---
Date Performed: 08/07/2017 Time Performed: 19:46:07 PTAGE: 81 years EKG: Sinus rhythm WITH OCCASIONAL SUPRAVENTRICULAR PREMATURE COMPLEXES SEPTAL MYOCARDIAL INFARCTION ABNORMAL ECG NO PREVIOUS TRACING DOCTOR: Mitchell Henriquez Interpretating Date/Time 08/08/2017 14:16:53
[2017-08-08] MEDS ORDERED: GADODIAMIDE PF 287 MG/ML 5 ML VIAL (for RAD MRI) IV PUSH ONE (14:57)
[2017-08-08] MEDS: HEPARIN SODIUM - SQ 10,000 UNITS/ML VIAL SQ SCH (20:48)
[2017-08-08] MEDS ORDERED: SODIUM CHLOR 0.9% 1000 ML INJ 1,000 ML IV ONE ×2 (23:00)
[2017-08-08] MEDS: METOPROLOL TARTRATE 5 MG/5 ML VIAL IV PUSH PRN ×3 (23:02→23:56)
[2017-08-09] VITALS (21 sets, daily range): BP systolic 113–143; BP diastolic 56–72; PULSE 66–106; RESP 17–26; TEMP 98–100.7; O2SAT 92–100
[2017-08-09] MEDS: METOPROLOL TARTRATE 5 MG/5 ML VIAL IV PUSH PRN ×2 (00:48→00:55)
[2017-08-09] MEDS: AMIODARONE INJ 450 MG in DEXTROSE 5% IN WATE(EXCEL) INJ 241 ML IV PRN ×4 (02:38→13:26)
[2017-08-09] MEDS: CHLORHEXIDINE GLUCONATE 2 % 1 PACK (2 CLOTHS) TOP SCH (03:14)
[2017-08-09 05:01] LABS: AUTOMATED NEUTROPHIL # 9.2 TH/MM3 (1.8-7.7); BASOPHIL % 0.4 % (0.0-2.0); EOSINOPHIL % 0.1 % (0.0-4.0); HEMOGLOBIN 8.1 GM/DL (11.6-15.3); LYMPH % 8.1 % (9.0-44.0); LYMPHOCYTE # 0.9 TH/MM3 (1.0-4.8); MEAN CELL VOLUME 85.7 FL (80.0-100.0); MEAN CORPUSCULAR HEMOGLOBIN 27.7 PG (27.0-34.0); MEAN CORPUSCULAR HGB CONC 32.3 % (32.0-36.0); MONO % 8.4 % (0.0-8.0); MONOCYTE # 0.9 TH/MM3 (0-0.9); PLATELET COUNT 179 TH/MM3 (150-450); RED BLOOD COUNT 2.92 MIL/MM3 (4.00-5.30); RED CELL DISTRIBUTION WIDTH 12.9 % (11.6-17.2); WHITE BLOOD COUNT 11.1 TH/MM3 (4.0-11.0)
[2017-08-09 05:25] LABS: ALBUMIN 2.8 GM/DL (3.4-5.0); AST (GOT) 53 U/L (15-37); BICARBONATE 20.6 MEQ/L (21.0-32.0); BLOOD UREA NITROGEN 15 MG/DL (7-18); CALCIUM 7.9 MG/DL (8.5-10.1); CHLORIDE 113 MEQ/L (98-107); CREATININE 0.84 MG/DL (0.50-1.00); GLOMERULAR FILTRATION RATE 65 ML/MIN (>89); GLUCOSE,RANDOM 91 MG/DL (74-106); MAGNESIUM 1.8 MG/DL (1.5-2.5); SODIUM (NA) 142 MEQ/L (136-145)
[2017-08-09 05:27] LABS: ALT (GPT) 22 U/L (10-53); PHOSPHORUS 2.3 MG/DL (2.5-4.9)
[2017-08-09 05:28] LABS: ALKALINE PHOSPHATASE 71 U/L (45-117); TOTAL BILIRUBIN ADULT 0.6 MG/DL (0.2-1.0); TOTAL PROTEIN 6.4 GM/DL (6.4-8.2)
[2017-08-09 05:53] LABS: INTERNATIONAL NORMALIZED RATIO 1.3 RATIO; PROTHROMBIN TIME - PATIENT 12.9 SEC (9.8-11.6)
[2017-08-09] MEDS: CHLORHEXIDINE 0.12% (ORAL KIT) 15 ML CUP MT SCH ×2 (08:18→20:00)
[2017-08-09] MEDS: ARTIFICIAL TEARS OPTH SOLN 15 ML BTL EACH EYE SCH ×3 (09:00→20:46)
[2017-08-09] MEDS: HEPARIN SODIUM - SQ 10,000 UNITS/ML VIAL SQ SCH ×2 (09:35→20:46)
[2017-08-09] MEDS: FAMOTIDINE 20 MG/2 ML VIAL IV PUSH SCH ×2 (09:35→20:45)
--- NOTE | 2017-08-09 09:44 | HHI.CCPN ---
Subjective Remarks/Hospital Course 81-year-old female presents as a stroke alert. At 6 PM she was eating dinner and then abruptly dropped her silverware and slumped over to the side. She was intubated immediately in the emergency department for an airway protection due to inability to protect her airways. The CTA showed Left M1 occlusion for which patient received the TPA infusion and went immediately to IR where the artery was cleared with suction thrombectomy. 08/08: On ventilator, will hold sedation. Breathes spontaneously with vigor. 08/09: Strong on vent - will try to extubate. Objective Vital Signs Date Time Temp Pulse Resp B/P (MAP) Pulse Ox O2 Delivery O2 Flow Rate FiO2 08/09/17 08:26 92 35 08/09/17 08:00 98.0 77 19 113/67 (82) 08/09/17 07:00 Mechanical Ventilator Intake and Output 08/09/17 08/09/17 08/10/17 08:00 16:00 00:00 Intake Total 2453 ml Output Total 200 ml Balance 2253 ml Result Diagram: 08/09/17 0430 08/09/17 0430 Other Results Laboratory Tests Test 08/08/17 22:02 Blood Gas Puncture Site RT BRACHIAL Blood Gas Patient Temperature 98.6 Blood Gas HCO3 20 mmol/L (22-26) Blood Gas Base Excess -3.1 mmol/L (-2-2) Blood Gas Oxygen Saturation 98 % (90-100) Arterial Blood pH 7.46 (7.380-7.420) Arterial Blood Partial Pressure CO2 29 mmHg (38-42) Arterial Blood Partial Pressure O2 170 mmHg (61-120) Arterial Blood Oxygen Content 10.8 Vol % (12.0-20.0) Arterial Blood Carboxyhemoglobin 1.1 % (0-4) Arterial Blood Methemoglobin 0.8 % (0-2) Blood Gas Hemoglobin 7.6 G/DL (12.0-16.0) Oxygen Delivery Device VENTILATOR Blood Gas Ventilator Setting PRVC/AC Blood Gas Inspired Oxygen 40 % Imaging Last 24 hours Impressions Neck CTA 08/07/17 1238 Signed Impressions: Service Date/Time: July 18:49 - CONCLUSION: 1. Minimal atherosclerotic disease of both carotid bifurcations. There is no narrowing or other acute abnormality. 2. Distended and fluid-filled esophagus. Eladio Mcdonald MD Head CTA 08/07/17 1845 Signed Impressions: Service Date/Time: July 18:49 - CONCLUSION: Occluded left middle cerebral artery. Report called to Dr. Lira. Eladio Mcdonald MD Head CT 08/07/17 0000 Signed Impressions: Service Date/Time: July 18:39 - CONCLUSION: 1. No acute intracranial abnormality demonstrated. 2. Chronic white matter changes. 3. 4. Report called to Dr. Lira at 6: 5. 57 PM. Eladio Mcdonald MD Chest X-Ray 08/07/17 0000 Signed Impressions: Service Date/Time: July 19:02 - CONCLUSION: Minimal bibasilar atelectasis. Appropriate endotracheal tube tip position. Eladio Mcdonald MD Objective Remarks GENERAL: Elderly female, intubated SKIN: Focused skin assessment reveals no rash and nodules. Skin is Warm and dry. HEAD: Atraumatic. Normocephalic. EYES: Pupils equal and round. Reactive. ENT: No nasal bleeding or discharge. Mucous membranes pink and moist. NECK: Trachea midline. Orally intubated. CARDIOVASCULAR: Regular rate and rhythm. No murmur appreciated. No JVD. RESPIRATORY: No accessory muscle use. Clear to auscultation. Breath sounds equal bilaterally. GASTROINTESTINAL: Abdomen soft, non-tender, nondistended. No guarding. MUSCULOSKELETAL: No obvious deformities. No clubbing. No cyanosis. No edema. NEUROLOGICAL: Patient is looking around, tracks with eyes. Her left arm and leg will withdraw to any stimuli. Right side strongly responsive and purposeful. A/P Assessment and Plan Respiratory failure - Intubated for airway protection - No weaning until neurologically improved - Vent bundle - DuoNeb's when necessary - CXR and ABG daily Acute left MCA CVA - Status post TPA infusion - Status post embolectomy in the IR - PT and OT - Management per neurology Dr. Lira - Aspirin to start 24-hour after TPA infusion New a-fib - Add beta marie, try to convert with amiodarone. Hypertension - Labetalol and hydralazine when necessary to keep SBP less than 180 - We'll start Cardene drip if needed DVT GI prophylaxis - Teds SCDs - Subcutaneous heparin to start 24 hours after TPA administration - Pepcid Overall impression: Remains critically ill following left hemispheric ischemic stroke. Unable to wean from mechanical ventilation. New a-fib vs paroxysmal. Critical Care 35 mins Onesimo Aldana MD Aug 09, 2017 09:44
[2017-08-09] MEDS ORDERED: POTASSIUM CHLORIDE 25 MEQ EFFERVESCENT TAB PO PRN (09:45)
[2017-08-09] MEDS ORDERED: SODIUM PHOSPHATE INJ 30 MMOL in SODIUM CHLOR 0.9% 250 ML INJ 240 ML IV PRN (09:45)
[2017-08-09] MEDS ORDERED: MAGNESIUM SULFATE INJ 2 GM in SODIUM CHLORIDE 0.9% INJ 96 ML IV PRN (09:45)
[2017-08-09] MEDS ORDERED: POTASSIUM PHOSPHATE MONOBASIC 500 MG TAB PO/TUBE PRN (09:45)
[2017-08-09] MEDS ORDERED: POTASSIUM PHOSPHATE MONOBASIC 500 MG TAB PO PRN (09:45)
[2017-08-09] MEDS ORDERED: MAGNESIUM OXIDE 400 MG TAB PO PRN (09:45)
[2017-08-09] MEDS ORDERED: POTASSIUM CHLOR 20 MEQ PREMIX 100 ML IV PRN ×2 (09:45)
[2017-08-09] MEDS ORDERED: POTASSIUM PHOSPHATE INJ 30 MMOL in SODIUM CHLOR 0.9% 250 ML INJ 250 ML IV PRN (09:45)
[2017-08-09] MEDS ORDERED: POTASSIUM CHLOR 40 MEQ PREMIX 100 ML IV PRN ×2 (09:45)
[2017-08-09] MEDS ORDERED: MAGNESIUM SULFATE INJ 4 GM in SODIUM CHLORIDE 0.9% INJ 92 ML IV PRN (09:45)
[2017-08-09] MEDS: MAGNESIUM SULFATE 1 GM PREMIX 100 ML IV SCH ×2 (10:13→11:25)
[2017-08-09] MEDS ORDERED: PILL SPLITTER OTHER PRN (10:15)
[2017-08-09] MEDS: DOCUSATE SODIUM 50 MG/SENNA 8.6 MG TAB PO SCH ×2 (12:13→20:44)
[2017-08-09] MEDS: METOPROLOL TARTRATE 25 MG TAB PO SCH ×2 (12:13→20:44)
[2017-08-09] MEDS: POTASSIUM CHLOR 20 MEQ PREMIX 100 ML IV SCH ×2 (13:00→13:03)
--- NOTE | 2017-08-09 14:48 | HHI.PR ---
Review/Management Diagnosis Acute ischemic stroke left MCA s/p tPA, and IR clot retrieval HTN A fib with RVR Plan Neuro checks Q 1h Aspirin 81 mg 24 hours after tPA Telemetry Can be off ventilator DVT prophylaxis GI prophylaxis Covering for Dr. Lira for the weekend Diagnosis/Plan: Subjective Subjective Comments Patient still intubated Awake, alert, responds to commands [open eyes, wiggle toes, make a fist] s/p tPA and IR clot removal No family at bed side Active Medications Current Medications Medications (Trade) Dose Ordered Sig/Geovani Route Start Time Stop Time Status Last Admin Sodium Chloride 1,000 ml @ 84 mls/hr [id number] IV 08/07/17 20:05 08/08/17 10:03 (NS Flush) 2 ml UNSCH PRN IV FLUSH 08/07/17 20:15 (NS Flush) 2 ml BID IV FLUSH 08/07/17 21:00 08/08/17 20:46 (Tylenol) 650 mg Q6H PRN PO 08/07/17 20:15 (Pepcid Inj) 20 mg Q12HR IV PUSH 08/07/17 21:00 08/09/17 09:35 (Versed Inj) 2 mg Q1H PRN IV PUSH 08/07/17 20:15 08/08/17 03:31 (Tears Naturale Opth Soln) 1 drop TID EACH EYE 08/08/17 09:00 08/09/17 13:00 (Zofran Inj) 4 mg Q6H PRN IV PUSH 08/07/17 20:15 (Duoneb Neb) 1 ampule Q2HR NEB PRN INH 08/07/17 20:15 (Heparin Inj) 5,000 units Q12H SQ 08/08/17 21:00 08/09/17 09:35 Miscellaneous Information 1 Q361D XX 08/07/17 20:15 (Chlorhexidine 2% Cloth) 3 pack Taper DAILY@04 TOP 08/08/17 04:00 08/04/18 03:59 (Chlorhexidine 2% Cloth) 3 pack UNSCH PRN TOP 08/07/17 20:15 (Nuria-Colace) 1 tab BID PO 08/07/17 21:00 08/09/17 12:13 (Milk Of Magnesia Liq) 30 ml Q12H PRN PO 08/07/17 20:15 (Senokot) 17.2 mg Q12H PRN PO 08/07/17 20:15 (Dulcolax Supp) 10 mg DAILY PRN RECTAL 08/07/17 20:15 (Lactulose Liq) 30 ml DAILY PRN PO 08/07/17 20:15 (Peridex 0.12% Liq) 15 ml BID@08,20 MT 08/08/17 08:00 08/09/17 08:18 Propofol 100 ml @ 1.941 mls/ hr TITRATE PRN IV 08/07/17 20:15 08/07/17 22:03 (Trandate Inj) 10 mg Q4H PRN IV PUSH 08/07/17 23:30 08/08/17 01:03 (Apresoline Inj) 20 mg Q4H PRN IV PUSH 08/07/17 23:30 (Lopressor Inj) 5 mg Q5M PRN IV PUSH 08/08/17 23:00 08/09/17 00:55 Amiodarone HCl 450 mg/Dextrose 250 ml @ 33.33 mls/ hr Q7H31M PRN IV 08/09/17 01:50 08/09/17 13:26 Potassium Chloride 100 ml @ 50 mls/hr Q2H IV 08/09/17 12:00 08/09/17 15:59 08/09/17 13:03 Potassium Chloride 100 ml @ 50 mls/hr Q2H PRN IV 08/09/17 09:45 Potassium Chloride 100 ml @ 50 mls/hr Q2H PRN IV 08/09/17 09:45 (K-Lyte Cl Eff) 50 meq UNSCH PRN PO 08/09/17 09:45 Potassium Chloride 100 ml @ 25 mls/hr UNSCH PRN IV 08/09/17 09:45 Potassium Chloride 100 ml @ 50 mls/hr Q2H PRN IV 08/09/17 09:45 Magnesium Sulfate 4 gm/Sodium Chloride 100 ml @ 50 mls/hr UNSCH PRN IV 08/09/17 09:45 (Mag-Ox) 800 mg UNSCH PRN PO 08/09/17 09:45 Magnesium Sulfate 2 gm/Sodium Chloride 100 ml @ 50 mls/hr UNSCH PRN IV 08/09/17 09:45 (K-Phos) 2,000 mg Q4H PRN PO 08/09/17 09:45 Sodium Phosphate 30 mmol/Sodium Chloride 250 ml @ 42 mls/hr UNSCH PRN IV 08/09/17 09:45 (K-Phos) 2,000 mg UNSCH PRN PO/TUBE 08/09/17 09:45 Potassium Phosphate 30 mmol/ Sodium Chloride 260 ml @ 42 mls/hr UNSCH PRN IV 08/09/17 09:45 (Lopressor) 12.5 mg Q12HR PO 08/09/17 10:00 08/09/17 12:13 (Pill Splitter) 1 ea UNSCH PRN OTHER 08/09/17 10:15 Allergies Allergies Coded Allergies No Allergy Information Available (Unverified08/07/17) Review of Systems All other ROS: ROS reviewed as documented in chart Exam I&O / VS 08/09/17 08/09/17 08/10/17 15:00 23:00 07:00 Intake Total 180 ml Balance 180 ml Intake IV Total 180 ml Vital Signs Date Time Temp Pulse Resp B/P (MAP) Pulse Ox O2 Delivery O2 Flow Rate FiO2 08/09/17 14:00 83 08/09/17 13:26 77 114/58 08/09/17 12:56 99 35 08/09/17 12:00 35 08/09/17 12:00 98.4 78 17 114/58 (76) 100 08/09/17 12:00 66 08/09/17 10:11 100 35 08/09/17 10:00 78 08/09/17 08:26 92 35 08/09/17 08:00 98.0 77 19 113/67 (82) 98 08/09/17 08:00 35 08/09/17 08:00 86 08/09/17 07:00 Mechanical Ventilator 35 08/09/17 06:00 92 08/09/17 04:00 35 08/09/17 04:00 99.7 96 19 117/56 (76) 100 08/09/17 04:00 96 08/09/17 03:24 100 35 08/09/17 02:38 107 117/73 08/09/17 02:00 106 08/09/17 01:22 35 08/09/17 01:20 100 35 08/09/17 01:20 35 08/09/17 00:17 93 40 08/09/17 00:00 40 08/09/17 00:00 99.7 106 21 125/61 (82) 100 08/09/17 00:00 106 08/08/17 22:50 129 08/08/17 22:00 116 08/08/17 20:00 99 40 08/08/17 20:00 100.1 99 18 123/58 (79) 99 08/08/17 20:00 40 08/08/17 20:00 99 08/08/17 19:00 99 Mechanical Ventilator 40 08/08/17 18:00 78 08/08/17 17:10 100 40 08/08/17 16:00 66 08/08/17 16:00 40 08/08/17 16:00 97.3 66 15 119/59 (79) 100 Respiratory: Lungs CTA Exam Comments awake, alert, reponds to verbal commands, plantars are b/l downgoing, no gaze deviation Objective Radiology Results Last 72 hours Impressions Brain MRI 08/08/17 1939 Signed Impressions: Service Date/Time: Tuesday, August 08, 2017 13:05 - CONCLUSION: Bilateral subacute age infarctions. Eladio Noyola MD Chest X-Ray 08/08/17 0000 Signed Impressions: Service Date/Time: Tuesday, August 08, 2017 03:39 - CONCLUSION: Focal infiltrate in the left lung base. Nj Malik MD Neck CTA [id number] Signed Impressions: Service Date/Time: July 18:49 - CONCLUSION: 1. Minimal atherosclerotic disease of both carotid bifurcations. There is no narrowing or other acute abnormality. 2. Distended and fluid-filled esophagus. Eladio Mcdonald MD Head CTA [id number] Signed Impressions: Service Date/Time: July 18:49 - CONCLUSION: Occluded left middle cerebral artery. Report called to Dr. Lira. Eladio Mcdonald MD Head CT 08/07/17 0000 Signed Impressions: Service Date/Time: July 18:39 - CONCLUSION: 1. No acute intracranial abnormality demonstrated. 2. Chronic white matter changes. 3. 4. Report called to Dr. Lira at 6: 5. 57 PM. Eladio Mcdonald MD Chest X-Ray 08/07/17 0000 Signed Impressions: Service Date/Time: July 19:02 - CONCLUSION: Minimal bibasilar atelectasis. Appropriate endotracheal tube tip position. Eladio Mcdonald MD Cerebral Arteriogram 08/07/17 0000 Signed Impressions: Service Date/Time: July 20:00 - CONCLUSION: 1. Technically successful suction thrombectomy and TICI-3 revascularization of the distal left M1 thrombus. Ghulam Rao MD Micro and Labs Laboratory Tests Test 08/08/17 22:02 08/09/17 04:30 08/09/17 05:02 Blood Gas Puncture Site RT BRACHIAL Blood Gas Patient Temperature 98.6 Blood Gas HCO3 20 Blood Gas Base Excess -3.1 Blood Gas Oxygen Saturation 98 Arterial Blood pH 7.46 Arterial Blood Partial Pressure CO2 29 Arterial Blood Partial Pressure O2 170 Arterial Blood Oxygen Content 10.8 Arterial Blood Carboxyhemoglobin 1.1 Arterial Blood Methemoglobin 0.8 Blood Gas Hemoglobin 7.6 Oxygen Delivery Device VENTILATOR Blood Gas Ventilator Setting PRVC/AC Blood Gas Inspired Oxygen 40 White Blood Count 11.1 Red Blood Count 2.92 Hemoglobin 8.1 Hematocrit 25.0 Mean Corpuscular Volume 85.7 Mean Corpuscular Hemoglobin 27.7 Mean Corpuscular Hemoglobin Concent 32.3 Red Cell Distribution Width 12.9 Platelet Count 179 Mean Platelet Volume 10.0 Neutrophils (%) (Auto) 83.0 Lymphocytes (%) (Auto) 8.1 Monocytes (%) (Auto) 8.4 Eosinophils (%) (Auto) 0.1 Basophils (%) (Auto) 0.4 Neutrophils # (Auto) 9.2 Lymphocytes # (Auto) 0.9 Monocytes # (Auto) 0.9 Eosinophils # (Auto) 0.0 Basophils # (Auto) 0.0 CBC Comment DIFF FINAL Differential Comment Erythrocyte Sedimentation Rate 31 Blood Urea Nitrogen 15 Creatinine 0.84 Random Glucose 91 Total Protein 6.4 Albumin 2.8 Calcium Level 7.9 Phosphorus Level 2.3 Magnesium Level 1.8 Alkaline Phosphatase 71 Aspartate Amino Transf (AST/SGOT) 53 Alanine Aminotransferase (ALT/SGPT) 22 Total Bilirubin 0.6 Sodium Level 142 Potassium Level 3.5 Chloride Level 113 Carbon Dioxide Level 20.6 Anion Gap 8 Estimat Glomerular Filtration Rate 65 Prothrombin Time 12.9 Prothromb Time International Ratio 1.3 Activated Partial Thromboplast Time 27.7 Homa Recio MD Aug 09, 2017 14:48
--- NOTE | 2017-08-09 16:00 | EKG ---
Date Performed: 08/08/2017 Time Performed: 22:39:04 PTAGE: 81 years EKG: Atrial fibrillation with rapid ventricular response. Extensive ST-T changes may be due to m yocardial ischemia Low QRS voltages in limb leads Compared to previous tracing, the atrial fibrillati on and the ST-T wave changes are both new Abnormal ECG PREVIOUS TRACING : 08/07/2017 19.46 DOCTOR: Viet Rivas Interpretating Date/Time 08/09/2017 15:59:03
[2017-08-09] MEDS ORDERED: FUROSEMIDE 20 MG/2 ML VIAL IV PUSH ONE (16:15)
[2017-08-09 19:01] LABS: HEMATOCRIT 27.4 % (35.0-46.0); HEMOGLOBIN 9.2 GM/DL (11.6-15.3)
[2017-08-09] MEDS: SODIUM CHLORIDE 0.9% FLUSH 10 ML FLUSH IV FLUSH SCH (20:47)
[2017-08-09] MEDS: SODIUM CHLOR 0.9% 1000 ML INJ 1,000 ML IV SCH (22:45)
[2017-08-09] MEDS: RESP: ALBUTEROL 2.5 MG/IPRATROPIUM 0.5 MG NEB (PRN) INH (22:56)
[2017-08-10] VITALS (18 sets, daily range): BP systolic 93–146; BP diastolic 55–88; PULSE 85–112; RESP 18–30; TEMP 93–98.9; O2SAT 93–100
[2017-08-10] MEDS: CHLORHEXIDINE GLUCONATE 2 % 1 PACK (2 CLOTHS) TOP SCH (04:00)
[2017-08-10] MEDS: AMIODARONE INJ 450 MG in SODIUM CHLOR 0.9% (EXCEL) INJ 241 ML IV PRN ×2 (04:39→22:48)
[2017-08-10] MEDS: CHLORHEXIDINE 0.12% (ORAL KIT) 15 ML CUP MT SCH (08:00)
--- NOTE | 2017-08-10 08:10 | HHI.CCPN ---
Subjective Remarks/Hospital Course 81-year-old female presents as a stroke alert. At 6 PM she was eating dinner and then abruptly dropped her silverware and slumped over to the side. She was intubated immediately in the emergency department for an airway protection due to inability to protect her airways. The CTA showed Left M1 occlusion for which patient received the TPA infusion and went immediately to IR where the artery was cleared with suction thrombectomy. 08/08: On ventilator, will hold sedation. Breathes spontaneously with vigor. 08/09: Strong on vent - will try to extubate. 08/10: Extubated 18 hours ago and breathing comfortably. Some throat secretions require suctioning. New onset a-fib hasn't converted yet on amiodarone and lopressor. Ideally we would fully anticoagulate - will check with Neurology Service first. Update: Required intubation and mechanical ventilation at 1430 for hypoxemia and inadequate respiratory effort. Will stop Heparin overnight due to persistent oral bleeding following first intubation 07/29. Continue tube feeds. Cords edematous, will start decadron for 48 hours. In absence of any anticoagulation we may need to electrically cardiovert. Objective Vital Signs Date Time Temp Pulse Resp B/P (MAP) Pulse Ox O2 Delivery O2 Flow Rate FiO2 08/10/17 07:24 93 Venturi Mask 6.00 50 08/10/17 06:00 92 08/10/17 06:00 117/73 08/10/17 04:00 93.0 18 Intake and Output 08/10/17 08/10/17 08/11/17 08:00 16:00 00:00 Intake Total 1496 ml Output Total 500 ml Balance 996 ml Result Diagram: 08/09/17 1810 08/09/17 0430 Imaging Last 24 hours Impressions Neck CTA 08/07/17 1845 Signed Impressions: Service Date/Time: July 18:49 - CONCLUSION: 1. Minimal atherosclerotic disease of both carotid bifurcations. There is no narrowing or other acute abnormality. 2. Distended and fluid-filled esophagus. Eladio Mcdonald MD Head CTA 08/07/17 1845 Signed Impressions: Service Date/Time: July 18:49 - CONCLUSION: Occluded left middle cerebral artery. Report called to Dr. Lira. Eladio Mcdonald MD Head CT 08/07/17 0000 Signed Impressions: Service Date/Time: July 18:39 - CONCLUSION: 1. No acute intracranial abnormality demonstrated. 2. Chronic white matter changes. 3. 4. Report called to Dr. Lira at 6: 5. 57 PM. Eladio Mcdonald MD Chest X-Ray 08/07/17 0000 Signed Impressions: Service Date/Time: July 19:02 - CONCLUSION: Minimal bibasilar atelectasis. Appropriate endotracheal tube tip position. Eladio Mcdonald MD Objective Remarks GENERAL: Elderly female, exhausted. SKIN: Focused skin assessment reveals no rash and nodules. Skin is Warm and dry. HEAD: Atraumatic. Normocephalic. EYES: Pupils equal and round, 3 mm, reactive. ENT: No nasal bleeding or discharge. Mucous membranes pink and moist. NECK: Trachea midline. Few bloody throat secretions, airway patent. CARDIOVASCULAR: Irreg rate and rhythm. No murmur appreciated. No JVD. RESPIRATORY: No accessory muscle use. Scattered rhonchi. Breath sounds equal bilaterally. Labored pattern. GASTROINTESTINAL: Abdomen soft, non-tender, nondistended. No guarding. BS active. MUSCULOSKELETAL: No obvious deformities. No clubbing. No cyanosis. No edema. Well perfused. NEUROLOGICAL: Patient is somnolent. Her left arm and leg will withdraw to any stimuli. Right side strongly responsive and purposeful. A/P Assessment and Plan Respiratory failure - Intubated for airway protection - No weaning until neurologically improved - Vent bundle - DuoNeb's when necessary - Extubated -08/09. - Reintubated 08/10 @ 1430 hours due to inadequate respiratory effort and fatigue. Acute left MCA CVA - Status post TPA infusion - Status post embolectomy in the IR - PT and OT - Management per neurology Dr. Lira - Aspirin to start 24-hour after TPA infusion New a-fib - Add beta marie, try to convert with amiodarone. - Start full anticoagulation? Check with Neurology. - Consider cardioversion. Hypertension - Labetalol and hydralazine when necessary to keep SBP less than 180 - We'll start Cardene drip if needed - Cardiac ECHO normal DVT GI prophylaxis - Teds SCDs - Subcutaneous heparin started - Pepcid Overall impression: Patient is critically ill and required reinstitution of mechanical ventilation. New a-fib vs paroxysmal. Possible source? ECHO normal. Amiodarone infusing for 24 hours without conversion. Minor throat bleeding for past 36 hours precludes full anticoagulation - may need to cardiovert with electricity. Critical Care 44 mins aside from procedures Onesimo Adlana MD Aug 10, 2017 08:10
[2017-08-10] MEDS: ARTIFICIAL TEARS OPTH SOLN 15 ML BTL EACH EYE SCH ×2 (09:00→22:00)
[2017-08-10] MEDS: FAMOTIDINE 20 MG/2 ML VIAL IV PUSH SCH ×2 (09:52→22:50)
[2017-08-10] MEDS: METOPROLOL TARTRATE 25 MG TAB PO SCH ×2 (09:52→21:00)
[2017-08-10] MEDS: DOCUSATE SODIUM 50 MG/SENNA 8.6 MG TAB PO SCH ×2 (09:52→22:50)
[2017-08-10] MEDS: HEPARIN SODIUM - SQ 10,000 UNITS/ML VIAL SQ SCH (09:52)
--- NOTE | 2017-08-10 12:09 | HHI.PR ---
Review/Management Diagnosis Acute ischemic stroke left MCA s/p tPA, and IR clot retrieval HTN A fib with RVR Plan Neuro checks Q 1h Aspirin 81 mg 24 hours after tPA Telemetry Needs to be on anticoagulations ideally 4-5 days after iv tPA was administered DVT prophylaxis GI prophylaxis I explained to the patient's son who is at the bed side, the current neurologic status, answered his questions to the best of my knowledge Covering for Dr. Lira for the Dr. Lira qwill follow up Friday Diagnosis/Plan: Subjective Subjective Comments Extubated Awake alert Son at the bed side Rapid breathing Active Medications Current Medications Medications (Trade) Dose Ordered Sig/Geovani Route Start Time Stop Time Status Last Admin Sodium Chloride 1,000 ml @ 84 mls/hr [id number] IV 08/07/17 20:05 08/09/17 22:45 (NS Flush) 2 ml UNSCH PRN IV FLUSH 08/07/17 20:15 (NS Flush) 2 ml BID IV FLUSH 08/07/17 21:00 08/08/17 20:46 (Tylenol) 650 mg Q6H PRN PO 08/07/17 20:15 (Pepcid Inj) 20 mg Q12HR IV PUSH 08/07/17 21:00 08/10/17 09:52 (Versed Inj) 2 mg Q1H PRN IV PUSH 08/07/17 20:15 08/08/17 03:31 (Tears Naturale Opth Soln) 1 drop TID EACH EYE 08/08/17 09:00 08/10/17 09:00 (Zofran Inj) 4 mg Q6H PRN IV PUSH 08/07/17 20:15 (Duoneb Neb) 1 ampule Q2HR NEB PRN INH 08/07/17 20:15 08/09/17 22:56 (Heparin Inj) 5,000 units Q12H SQ 08/08/17 21:00 08/10/17 09:52 Miscellaneous Information 1 Q361D XX 08/07/17 20:15 (Chlorhexidine 2% Cloth) 3 pack Taper DAILY@04 TOP 08/08/17 04:00 08/04/18 03:59 (Chlorhexidine 2% Cloth) 3 pack UNSCH PRN TOP 08/07/17 20:15 (Nuria-Colace) 1 tab BID PO 08/07/17 21:00 08/10/17 09:52 (Milk Of Magnesia Liq) 30 ml Q12H PRN PO 08/07/17 20:15 (Senokot) 17.2 mg Q12H PRN PO 08/07/17 20:15 (Dulcolax Supp) 10 mg DAILY PRN RECTAL 08/07/17 20:15 (Lactulose Liq) 30 ml DAILY PRN PO 08/07/17 20:15 (Peridex 0.12% Liq) 15 ml BID@08,20 MT 08/08/17 08:00 08/09/17 08:18 Propofol 100 ml @ 1.941 mls/ hr TITRATE PRN IV 08/07/17 20:15 08/07/17 22:03 (Trandate Inj) 10 mg Q4H PRN IV PUSH 08/07/17 23:30 08/08/17 01:03 (Apresoline Inj) 20 mg Q4H PRN IV PUSH 08/07/17 23:30 (Lopressor Inj) 5 mg Q5M PRN IV PUSH 08/08/17 23:00 08/09/17 00:55 Potassium Chloride 100 ml @ 50 mls/hr Q2H PRN IV 08/09/17 09:45 Potassium Chloride 100 ml @ 50 mls/hr Q2H PRN IV 08/09/17 09:45 (K-Lyte Cl Eff) 50 meq UNSCH PRN PO 08/09/17 09:45 Potassium Chloride 100 ml @ 25 mls/hr UNSCH PRN IV 08/09/17 09:45 Potassium Chloride 100 ml @ 50 mls/hr Q2H PRN IV 08/09/17 09:45 Magnesium Sulfate 4 gm/Sodium Chloride 100 ml @ 50 mls/hr UNSCH PRN IV 08/09/17 09:45 (Mag-Ox) 800 mg UNSCH PRN PO 08/09/17 09:45 Magnesium Sulfate 2 gm/Sodium Chloride 100 ml @ 50 mls/hr UNSCH PRN IV 08/09/17 09:45 (K-Phos) 2,000 mg Q4H PRN PO 08/09/17 09:45 Sodium Phosphate 30 mmol/Sodium Chloride 250 ml @ 42 mls/hr UNSCH PRN IV 08/09/17 09:45 (K-Phos) 2,000 mg UNSCH PRN PO/TUBE 08/09/17 09:45 Potassium Phosphate 30 mmol/ Sodium Chloride 260 ml @ 42 mls/hr UNSCH PRN IV 08/09/17 09:45 (Lopressor) 12.5 mg Q12HR PO 08/09/17 10:00 08/10/17 09:52 (Pill Splitter) 1 ea UNSCH PRN OTHER 08/09/17 10:15 Amiodarone HCl 450 mg/Sodium Chloride 250 ml @ 33.33 mls/ hr Q7H31M PRN IV 08/10/17 03:30 08/10/17 04:39 Allergies Allergies Coded Allergies No Allergy Information Available (Unverified08/07/17) Review of Systems All other ROS: ROS reviewed as documented in chart Exam I&O / VS Vital Signs Date Time Temp Pulse Resp B/P (MAP) Pulse Ox O2 Delivery O2 Flow Rate FiO2 08/10/17 10:00 95 08/10/17 08:00 98.5 85 28 145/88 (107) 93 08/10/17 08:00 92 08/10/17 07:24 93 Venturi Mask 6.00 50 08/10/17 07:00 96 Partial Non-Rebreather 16.00 60 08/10/17 06:00 92 08/10/17 06:00 100 117/73 08/10/17 04:39 90 93/55 08/10/17 04:00 93.0 92 18 93/55 (68) 97 08/10/17 04:00 92 08/10/17 02:00 103 08/10/17 00:00 98.9 108 22 119/68 (85) 96 08/10/17 00:00 108 08/09/17 22:00 96 08/09/17 21:41 99 Non-Rebreather 08/09/17 20:00 96 08/09/17 20:00 100.7 96 26 143/72 (95) 99 08/09/17 19:30 97 Partial Non-Rebreather 15.00 08/09/17 18:00 92 08/09/17 16:00 92 08/09/17 16:00 98.5 94 21 124/60 (81) 100 08/09/17 14:45 35 08/09/17 14:45 99 Nasal Cannula 4.00 08/09/17 14:45 99 Nasal Cannula 4 08/09/17 14:00 83 08/09/17 13:26 77 114/58 08/09/17 12:56 99 35 Respiratory: Lungs CTA Exam Comments awake, alert, reponds to verbal commands, plantars are b/l downgoing, no gaze deviation Objective Micro and Labs Laboratory Tests Test 08/09/17 18:10 Hemoglobin 9.2 Hematocrit 27.4 Homa Recio MD Aug 10, 2017 12:09
[2017-08-10] MEDS ORDERED: ACETAMINOPHEN 650 MG/20.3 ML UDC PO PRN (13:15)
[2017-08-10] MEDS ORDERED: FUROSEMIDE 40 MG/4 ML VIAL ONE (13:45)
[2017-08-10] MEDS: RESP: ALBUTEROL 2.5 MG/IPRATROPIUM 0.5 MG NEB (PRN) INH (13:54)
[2017-08-10] MEDS ORDERED: FUROSEMIDE 20 MG/2 ML VIAL IV PUSH ONE (14:00)
[2017-08-10] MEDS ORDERED: PHENYLEPHRINE HCL 10 MG/ML VIAL ONE ×2 (14:19→14:20)
[2017-08-10] MEDS ORDERED: TERBUTALINE INJ 1 MG/ML AMP SQ PRN (14:45)
[2017-08-10] MEDS ORDERED: PHENYLEPHRINE INJ 80 MG in SODIUM CHLOR 0.9% 1000 ML INJ 1,000 ML IV PRN (14:45)
[2017-08-10] MEDS ORDERED: PROPOFOL 1000 MG/100 ML INJ 100 ML IV PRN (14:45)
[2017-08-10] MEDS ORDERED: PHENYLEPHRINE INJ 80 MG in SODIUM CHLORID 0.9% 500 ML INJ 492 ML IV PRN (15:00)
--- NOTE | 2017-08-10 15:41 | RADRPT ---
EXAM DATE/TIME: 08/10/2017 14:47 [facility] COMPARISON: CHEST SINGLE AP, August 08, 2017, 3:39. INDICATIONS : ET and NG tube placement. MEDICAL HISTORY : None. SURGICAL HISTORY : None. ENCOUNTER: Initial ACUITY: 1 day PAIN SCORE: Non-responsive. LOCATION: Bilateral chest FINDINGS: A single AP semierect portable view of the chest was obtained. This again demonstrates the endotrache al tube in place with the tip 4 cm above the janina. There has been and interval placement nasogastri c tube with tip in proximal stomach. The heart size remains at the upper limits of normal. Hazy opaci ty is noted at the left lung base with partial obscuration of the left hemidiaphragm. Costophrenic an gles not well-visualized. There are no new confluent infiltrates. Overlying artifact is noted from ox ygen tubing and multiple electrocardiogram leads. Partially calcified breast implants are again noted . CONCLUSION: 1. Interval placement of nasogastric tube. 2. Hazy opacity remains at the left lung base without significant change. Ronald Schumacher MD on August 10, 2017 at 15:37 Board Certified Radiologist. This report was verified electronically.
[2017-08-10] MEDS ORDERED: CHLORHEXIDINE 0.12% (ORAL KIT) 15 ML CUP MT SCH (20:00)
[2017-08-10] MEDS: SODIUM BICARBONATE 8.4% INJ 100 MEQ in WATER STERILE FOR INJ 850 ML IV SCH (20:00)
[2017-08-10] MEDS: SODIUM CHLORIDE 0.9% FLUSH 10 ML FLUSH IV FLUSH SCH (21:00)
[2017-08-10 22:08] LABS: CALCIUM 8.4 MG/DL (8.5-10.1); CREATININE 0.93 MG/DL (0.50-1.00); MAGNESIUM 2.1 MG/DL (1.5-2.5)
[2017-08-10] MEDS: DEXAMETHASONE SOD PHOS 4 MG/ML VIAL IV PUSH SCH (23:02)
[2017-08-11] VITALS (13 sets, daily range): BP systolic 102–115; BP diastolic 59–65; PULSE 77–99; RESP 16–28; TEMP 98.6–99.5; O2SAT 83–97
[2017-08-11] MEDS: RESP: ALBUTEROL 2.5 MG/IPRATROPIUM 0.5 MG NEB (PRN) INH ×2 (00:35→05:55)
[2017-08-11] MEDS: PROPOFOL 1000 MG/100 ML INJ 100 ML IV PRN (01:26)
[2017-08-11] MEDS: SODIUM BICARBONATE 8.4% INJ 100 MEQ in WATER STERILE FOR INJ 850 ML IV SCH (05:17)
[2017-08-11] MEDS: DEXAMETHASONE SOD PHOS 4 MG/ML VIAL IV PUSH SCH ×2 (05:17→13:04)
[2017-08-11 05:40] LABS: HEMOGLOBIN 8.2 GM/DL (11.6-15.3); LYMPH % 4.2 % (9.0-44.0); LYMPHOCYTE # 0.4 TH/MM3 (1.0-4.8); MEAN CORPUSCULAR HEMOGLOBIN 28.6 PG (27.0-34.0); MEAN CORPUSCULAR HGB CONC 34.1 % (32.0-36.0); MEAN PLATELET VOLUME 9.8 FL (7.0-11.0); MONO % 4.7 % (0.0-8.0); MONOCYTE # 0.5 TH/MM3 (0-0.9); NEUT % 91.1 % (16.0-70.0); PLATELET COUNT 172 TH/MM3 (150-450); RED BLOOD COUNT 2.85 MIL/MM3 (4.00-5.30); RED CELL DISTRIBUTION WIDTH 12.5 % (11.6-17.2); WHITE BLOOD COUNT 9.8 TH/MM3 (4.0-11.0)
[2017-08-11 06:05] LABS: CALCIUM 8.3 MG/DL (8.5-10.1); CREATININE 0.96 MG/DL (0.50-1.00)
--- NOTE | 2017-08-11 06:49 | RADRPT ---
EXAM DATE/TIME: 08/11/2017 06:35 [facility] COMPARISON: CHEST SINGLE AP, August 10, 2017, 14:47. INDICATIONS : Evaluate for pneumonia, possible aspiration MEDICAL HISTORY : None. SURGICAL HISTORY : None. ENCOUNTER: Subsequent ACUITY: 4 - 6 days PAIN SCORE: Non-responsive. LOCATION: Bilateral chest FINDINGS: ET tube and NG tube are well placed. The heart size is normal. There is patchy increased density at t he left upper lung and at the lower lobes bilaterally being worse on the left. There is silhouetting of the left hemidiaphragm. Bilateral breast implants are seen. CONCLUSION: Patchy areas of consolidation or atelectasis which appear worse on the current exam. Eladio Cleveland MD on August 11, 2017 at 6:46 Board Certified Radiologist. This report was verified electronically.
--- NOTE | 2017-08-11 07:41 | HHI.CCPN ---
Subjective Remarks/Hospital Course 81-year-old female presents as a stroke alert. At 6 PM she was eating dinner and then abruptly dropped her silverware and slumped over to the side. She was intubated immediately in the emergency department for an airway protection due to inability to protect her airways. The CTA showed Left M1 occlusion for which patient received the TPA infusion and went immediately to IR where the artery was cleared with suction thrombectomy. 08/08: On ventilator, will hold sedation. Breathes spontaneously with vigor. 08/09: Strong on vent - will try to extubate. 08/10: Extubated 18 hours ago and breathing comfortably. Some throat secretions require suctioning. New onset a-fib hasn't converted yet on amiodarone and lopressor. Ideally we would fully anticoagulate - will check with Neurology Service first. Update: Required intubation and mechanical ventilation at 1430 for hypoxemia and inadequate respiratory effort. Will stop Heparin overnight due to persistent oral bleeding following first intubation 07/29. Continue tube feeds. Cords edematous, will start decadron for 48 hours. In absence of any anticoagulation we may need to electrically cardiovert. 08/11: Her major problem at this point is hypoxemic respiratory failure and what appears to be bilateral aspiration pneumonitis. She has a specific advanced directive that apparently precludes long-term aggressive support, vent , etc. Objective Vital Signs Date Time Temp Pulse Resp B/P (MAP) Pulse Ox O2 Delivery O2 Flow Rate FiO2 08/11/17 06:30 96 Mechanical Ventilator 100 08/11/17 06:00 84 08/11/17 06:00 139/79 08/11/17 04:00 99.5 23 08/10/17 07:24 6.00 Intake and Output 08/11/17 08/11/17 08/12/17 08:00 16:00 00:00 Intake Total 1488 ml Output Total 350 ml Balance 1138 ml Result Diagram: 08/11/17 0349 08/11/17 0349 Other Results Laboratory Tests Test 08/10/17 15:56 Blood Gas Puncture Site LT RADIAL Blood Gas Patient Temperature 98.6 Blood Gas HCO3 16 mmol/L (22-26) Blood Gas Base Excess -9.2 mmol/L (-2-2) Blood Gas Oxygen Saturation 98 % (90-100) Arterial Blood pH 7.29 (7.380-7.420) Arterial Blood Partial Pressure CO2 34 mmHg (38-42) Arterial Blood Partial Pressure O2 207 mmHg (61-120) Arterial Blood Oxygen Content 12.9 Vol % (12.0-20.0) Arterial Blood Carboxyhemoglobin 0.7 % (0-4) Arterial Blood Methemoglobin 0.8 % (0-2) Blood Gas Hemoglobin 9.0 G/DL (12.0-16.0) Oxygen Delivery Device VENTILATOR Blood Gas Ventilator Setting Blood Gas Inspired Oxygen 100 % Imaging Last 24 hours Impressions Neck CTA [id number]/07/[id number] Signed Impressions: Service Date/Time: July 18:49 - CONCLUSION: 1. Minimal atherosclerotic disease of both carotid bifurcations. There is no narrowing or other acute abnormality. 2. Distended and fluid-filled esophagus. Eladio Mcdonald MD Head CTA [id number]/171844 Signed Impressions: Service Date/Time: July 18:49 - CONCLUSION: Occluded left middle cerebral artery. Report called to Dr. Lira. Eladio Mcdonald MD Head CT 08/07/17 0000 Signed Impressions: Service Date/Time: July 18:39 - CONCLUSION: 1. No acute intracranial abnormality demonstrated. 2. Chronic white matter changes. 3. 4. Report called to Dr. Lira at 6: 5. 57 PM. Eladio Mcdonald MD Chest X-Ray 08/07/17 0000 Signed Impressions: Service Date/Time: July 19:02 - CONCLUSION: Minimal bibasilar atelectasis. Appropriate endotracheal tube tip position. Eladio Mcdonald MD Objective Remarks GENERAL: Elderly female, exhausted. SKIN: Focused skin assessment reveals no rash and nodules. Skin is Warm and dry. HEAD: Atraumatic. Normocephalic. EYES: Pupils equal and round, 3 mm, reactive. ENT: No nasal bleeding or discharge. Mucous membranes pink and moist. NECK: Trachea midline. Few bloody throat secretions, airway patent. CARDIOVASCULAR: Irreg rate and rhythm. No murmur appreciated. No JVD. RESPIRATORY: Scattered rhonchi. Breath sounds equal bilaterally. Labored pattern. GASTROINTESTINAL: Abdomen soft, non-tender, nondistended. No guarding. BS active. MUSCULOSKELETAL: No obvious deformities. No clubbing. No cyanosis. No edema. Well perfused. NEUROLOGICAL: Patient is somnolent. Her left arm and leg will withdraw to any stimuli. Right side purposeful. A/P Assessment and Plan Respiratory failure - Intubated for airway protection - No weaning until neurologically improved - Vent bundle - DuoNeb's when necessary - Extubated -08/09. - Reintubated 08/10 @ 1430 hours due to inadequate respiratory effort and fatigue. - FiO2 100% today Acute left MCA CVA - Status post TPA infusion - Status post embolectomy in the IR - PT and OT - Management per neurology Dr. Lira - Aspirin to start 24-hour after TPA infusion New a-fib - Add beta marie, try to convert with amiodarone. - Start full anticoagulation? Check with Neurology. - Consider cardioversion. Hypertension - Labetalol and hydralazine when necessary to keep SBP less than 180 - We'll start Cardene drip if needed - Cardiac ECHO normal DVT GI prophylaxis - Teds SCDs - Subcutaneous heparin started - Pepcid Overall impression: Patient is critically ill and required reinstitution of mechanical ventilation. New a-fib vs paroxysmal. Possible source? ECHO normal. Amiodarone infusing for 24 hours without conversion. Minor throat bleeding precludes full anticoagulation - may need to cardiovert with electricity. This patient will not recovery from this stroke due to pulmonary abd cardiac complications. Critical Care 40 mins Onesimo Aldana MD Aug 11, 2017 07:41
--- NOTE | 2017-08-11 07:58 | HHI.PR ---
Subjective Remarks afib Objective Vital Signs Date Time Temp Pulse Resp B/P (MAP) Pulse Ox O2 Delivery O2 Flow Rate FiO2 08/11/17 06:30 96 Mechanical Ventilator 100 08/11/17 06:15 93 100 08/11/17 06:00 84 08/11/17 06:00 84 139/79 08/11/17 04:00 97 08/11/17 04:00 99.5 97 23 113/61 (78) 95 08/11/17 04:00 70 08/11/17 03:50 95 70 08/11/17 02:00 92 08/11/17 00:45 96 70 08/11/17 00:45 91 Mechanical Ventilator 70 08/11/17 00:45 70 08/11/17 00:00 97 Mechanical Ventilator 60 08/11/17 00:00 60 08/11/17 00:00 98.6 99 28 110/59 (76) 94 08/11/17 00:00 99 08/10/17 23:30 103 116/66 08/10/17 23:30 94 60 08/10/17 22:48 101 108/69 08/10/17 22:00 70 08/10/17 22:00 93 08/10/17 22:00 93 114/71 08/10/17 21:00 103 123/73 08/10/17 20:20 97 Mechanical Ventilator 70 08/10/17 20:15 99 70 08/10/17 20:00 98.6 104 30 146/75 (98) 97 08/10/17 20:00 80 08/10/17 20:00 104 08/10/17 20:00 104 146/75 08/10/17 19:30 104 95/52 08/10/17 19:30 104 95/52 08/10/17 19:15 97 Mechanical Ventilator 80 08/10/17 18:00 97 08/10/17 16:11 98 80 08/10/17 16:00 107 08/10/17 16:00 98.4 112 30 122/75 (91) 97 08/10/17 15:14 99 147/66 08/10/17 14:25 100 100 08/10/17 14:00 110 08/10/17 12:00 99 08/10/17 12:00 98.9 103 29 145/83 (103) 95 08/10/17 10:00 95 08/10/17 08:00 98.5 85 28 145/88 (107) 93 08/10/17 08:00 92 I/O 08/10/17 08/10/17 08/10/17 08/11/17 08/11/17 08/11/17 07:00 15:00 23:00 07:00 15:00 23:00 Intake Total 1496 ml 803 ml 1499.5 ml Output Total 500 ml 700 ml 350 ml Balance 996 ml 103 ml 1149.5 ml Intake Oral 0 ml 0 ml IV Total 1496 ml 803 ml 1058.5 ml Tube Feeding 441 ml Output Urine Total 500 ml 700 ml 350 ml Drainage Total 0 ml # Bowel Movements 0 1 Result Diagram: 08/11/17 0349 08/11/17348 Objective Remarks dip sedated on vent no movement t/o Assessment and Plan Assessment and Plan imp sp tpa and clot removal check mri shows bilat cva and some hemorrhagic component on left fu echo nl ldl pend she needs anticoagulation nursing home coumdain for now with t he blood in cva on left i would just give her sq hep until can get coumadin going was doing well and standing yest b4 resp distress ? chf? Dennis Lira MD Aug 11, 2017 07:58
[2017-08-11] MEDS ORDERED: fentaNYL DRIP 250 ML IV PRN (09:00)
[2017-08-11] MEDS: DOCUSATE SODIUM 50 MG/SENNA 8.6 MG TAB PO SCH (09:00)
[2017-08-11] MEDS ORDERED: LORazepam 2 MG/ML VIAL IV PUSH PRN ×4 (09:00→14:30)
[2017-08-11] MEDS: METOPROLOL TARTRATE 25 MG TAB PO SCH (09:15)
[2017-08-11] MEDS: FAMOTIDINE 20 MG/2 ML VIAL IV PUSH SCH (09:15)
[2017-08-11 09:27] LABS: CHOLESTEROL/ HDL RATIO 1.75 RATIO
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
[2017-08-11] MEDS ORDERED: HYOSCYAMINE 0.5 MG/ML AMP IV PUSH ONE (14:00)
[2017-08-11] MEDS ORDERED: HYDROmorphone HCL PF 2 MG/ML VIAL IV PUSH ONE ×2 (14:00→14:15)
[2017-08-11] MEDS ORDERED: LORazepam 2 MG/ML VIAL IV PUSH ONE ×2 (14:00→14:15)
[2017-08-11] MEDS ORDERED: HYOSCYAMINE 0.5 MG/ML AMP IV PUSH PRN (14:30)
[2017-08-11] MEDS ORDERED: FUROSEMIDE 20 MG/2 ML VIAL IV PUSH PRN (14:30)
[2017-08-11] MEDS ORDERED: HYDROmorphone HCL PF 2 MG/ML VIAL IV PUSH PRN ×2 (14:30)
[2017-08-11 15:21] LABS: ANA SCREEN NEG (NEG)
[2017-08-11] MEDS ORDERED: LORazepam 2 MG/ML VIAL IV PUSH SCH (16:00)
[2017-08-11] MEDS ORDERED: HYDROmorphone HCL PF 2 MG/ML VIAL IV PUSH SCH (16:00)
--- NOTE | 2017-08-11 16:38 | HM ---
Date Performed: 08/09/2017 Time Performed: 11:26:00 HOOKUP DATE: 08/09/17 11:26:00 AM Sat ANALYSIS START TIME: 08/09/2017 11:31:00 AM ANALYSIS END TIME: 08/10/2017 11:21:19 AM PATIENT AGE: 81 PATIENT HEIGHT PATIENT WEIGHT DRUG LIST PATIENT DIAGNOSIS: CVA ON TPA TEST NARRATIVE: The patient's average heart rate was 96 BPM. Heart rates greater than 120 B PM were noted 5% of the time. No episodes of bradycardia were noted. 2 pauses exceeding 2.0 sec onds were noted. The longest pause of 2.0 seconds occurred at 03:36:33 PM Sat. 315 ventricular ec topics, which represented < 1% of the total beat count, were noted. The highest ventricular ectopic frequency occurred from 10:00 PM to 11:00 PM Sat. During this time 78 VE(s) occurred. Ventricular e ctopics were observed as 315 isolated beat(s) only. No couplets or runs were noted. No supravent ricular ectopics were noted. No episodes of ST depression (defined as -1.0 mm or more) were noted in channel 1. No episodes of ST depression (defined as -1.0 mm or more) were noted in channel 2. N o episodes of ST depression (defined as -1.0 mm or more) were noted in channel 3. no diary maintained ... Poor quality tracing TEST INTERPRETATION: Holter monitor demonstrates atrial fibrillation with a controlled ventricul ar response. Rare PVC was noted. S igned by : Dennis Awad
--- NOTE | 2017-08-11 16:42 | DEATH SUM ---
Summary Demographics Date Pronounced : Aug 11, 2017 Time Of : 1500 Pronounced By: Akua Coley RN Preliminary Cause of : Other (CVA) Onesimo Aldana MD Aug 11, 2017 16:42
--- NOTE | 2017-08-11 16:48 | HHI.DS ---
Discharge Summary Admission Date Aug 07, 2017 at 19:37 Discharge Date: Aug 11, 2017 Admitting Diagnosis CVA on tPa (1) Acute ischemic stroke ICD Code: I63.9 - Cerebral infarction, unspecified Diagnosis: Principal Status: Acute (2) Acute hypoxemic respiratory failure ICD Code: J96.01 - Acute respiratory failure with hypoxia Diagnosis: Principal (3) New onset a-fib ICD Code: I48.91 - Unspecified atrial fibrillation Diagnosis: Secondary Procedures tPA infusion. Cerebral artery suction thrombectomy Brief History 81-year-old female presents as a stroke alert. At 6 PM she was eating dinner and then abruptly dropped her silverware and slumped over to the side. She was intubated immediately in the emergency department for an airway protection due to inability to protect her airways. The CTA showed Left M1 occlusion for which patient received the TPA infusion and went immediately to IR where the artery was cleared with suction thrombectomy. CBC/BMP: 08/11/17 0349 08/11/17 0349 Significant Findings Laboratory Tests Test 08/08/17 22:02 08/09/17 04:30 08/09/17 05:02 08/09/17 18:10 Blood Gas HCO3 20 mmol/L (22-26) Blood Gas Base Excess -3.1 mmol/L (-2-2) Arterial Blood pH 7.46 (7.380-7.420) Arterial Blood Partial Pressure CO2 29 mmHg (38-42) Arterial Blood Partial Pressure O2 170 mmHg (61-120) Arterial Blood Oxygen Content 10.8 Vol % (12.0-20.0) Blood Gas Hemoglobin 7.6 G/DL (12.0-16.0) White Blood Count 11.1 TH/MM3 (4.0-11.0) Red Blood Count 2.92 MIL/MM3 (4.00-5.30) Hemoglobin 8.1 GM/DL (11.6-15.3) 9.2 GM/DL (11.6-15.3) Hematocrit 25.0 % (35.0-46.0) 27.4 % (35.0-46.0) Neutrophils (%) (Auto) 83.0 % (16.0-70.0) Lymphocytes (%) (Auto) 8.1 % (9.0-44.0) Monocytes (%) (Auto) 8.4 % (0.0-8.0) Neutrophils # (Auto) 9.2 TH/MM3 (1.8-7.7) Lymphocytes # (Auto) 0.9 TH/MM3 (1.0-4.8) Erythrocyte Sedimentation Rate 31 mm/hr (0-30) Albumin 2.8 GM/DL (3.4-5.0) Calcium Level 7.9 MG/DL (8.5-10.1) Phosphorus Level 2.3 MG/DL (2.5-4.9) Aspartate Amino Transf (AST/SGOT) 53 U/L (15-37) Chloride Level 113 MEQ/L (98-107) Carbon Dioxide Level 20.6 MEQ/L (21.0-32.0) Estimat Glomerular Filtration Rate 65 ML/MIN (>89) Prothrombin Time 12.9 SEC (9.8-11.6) Test 08/10/17 15:56 08/10/17 21:19 08/11/17 03:49 Blood Gas HCO3 16 mmol/L (22-26) Blood Gas Base Excess -9.2 mmol/L (-2-2) Arterial Blood pH 7.29 (7.380-7.420) Arterial Blood Partial Pressure CO2 34 mmHg (38-42) Arterial Blood Partial Pressure O2 207 mmHg (61-120) Blood Gas Hemoglobin 9.0 G/DL (12.0-16.0) Blood Urea Nitrogen 24 MG/DL (7-18) 27 MG/DL (7-18) Random Glucose 116 MG/DL (74-106) 164 MG/DL (74-106) Calcium Level 8.4 MG/DL (8.5-10.1) 8.3 MG/DL (8.5-10.1) Chloride Level 112 MEQ/L (98-107) 108 MEQ/L (98-107) Carbon Dioxide Level 20.0 MEQ/L (21.0-32.0) Estimat Glomerular Filtration Rate 58 ML/MIN (>89) 56 ML/MIN (>89) Red Blood Count 2.85 MIL/MM3 (4.00-5.30) Hemoglobin 8.2 GM/DL (11.6-15.3) Hematocrit 24.0 % (35.0-46.0) Neutrophils (%) (Auto) 91.1 % (16.0-70.0) Lymphocytes (%) (Auto) 4.2 % (9.0-44.0) Neutrophils # (Auto) 9.0 TH/MM3 (1.8-7.7) Lymphocytes # (Auto) 0.4 TH/MM3 (1.0-4.8) Potassium Level 2.9 MEQ/L (3.5-5.1) Troponin I 1.11 NG/ML (0.02-0.05) B-Type Natriuretic Peptide 566 PG/ML (0-100) Cholesterol Level 93 MG/DL (120-200) Imaging CT head CTA head PE at Discharge . Transfer Summary Patient was extubated 24 hours after tPA but required re-intubation for inability to control airway, compounded by heart failure and inability to control airway secretions. Her son decided, in keeping with her advanced directive and after discussions with the Palliative Care service, to withdraw artificial support. She naturally shortly after, pronounced at 1500 hours on 08/11/17. Her son was at the bedside. Hospital Course 81-year-old female presents as a stroke alert. At 6 PM she was eating dinner and then abruptly dropped her silverware and slumped over to the side. She was intubated immediately in the emergency department for an airway protection due to inability to protect her airways. The CTA showed Left M1 occlusion for which patient received the TPA infusion and went immediately to IR where the artery was cleared with suction thrombectomy. 08/08: On ventilator, will hold sedation. Breathes spontaneously with vigor. 08/09: Strong on vent - will try to extubate. 08/10: Extubated 18 hours ago and breathing comfortably. Some throat secretions require suctioning. New onset a-fib hasn't converted yet on amiodarone and lopressor. Ideally we would fully anticoagulate - will check with Neurology Service first. Update: Required intubation and mechanical ventilation at 1430 for hypoxemia and inadequate respiratory effort. Will stop Heparin overnight due to persistent oral bleeding following first intubation 07/29. Continue tube feeds. Cords edematous, will start decadron for 48 hours. In absence of any anticoagulation we may need to electrically cardiovert. 08/11: Her major problem at this point is hypoxemic respiratory failure and what appears to be bilateral aspiration pneumonitis. She has a specific advanced directive that apparently precludes long-term aggressive support, vent , etc. Pt Condition on Discharge: Deteriorating Onesimo Aldana MD 15, 2018 16:48
== END 2017-08-11 18:10 | disposition expired | DRG 23 ==
LOC: NEPC 18:26 → NEDA 19:37 → N03A 21:31
PROVIDERS: ADMIT Internal Medicine Critical Care Medicine; ATTEND Internal Medicine Critical Care Medicine
PROC: 03CG3ZZ Extirpation of Matter from Intracranial Artery, Percutaneous Approach (ICD-10-PCS; principal; 2017-08-07)
PROC: 3E03317 Introduction of Other Thrombolytic into Peripheral Vein, Percutaneous Approach (ICD-10-PCS; 2017-08-07)
PROC: 5A1945Z Respiratory Ventilation, 24-96 Consecutive Hours (ICD-10-PCS; 2017-08-07)
PROC: 0BH17EZ Insertion of Endotracheal Airway into Trachea, Via Natural or Artificial Opening (ICD-10-PCS; 2017-08-07)
PROC: B31RYZZ Fluoroscopy of Intracranial Arteries using Other Contrast (ICD-10-PCS; 2017-08-07)
PROC: 0BH17EZ Insertion of Endotracheal Airway into Trachea, Via Natural or Artificial Opening (ICD-10-PCS; 2017-08-10)
PROC: 5A1935Z Respiratory Ventilation, Less than 24 Consecutive Hours (ICD-10-PCS; 2017-08-10)
DX: I63.512 Cerebral infarction due to unspecified occlusion or stenosis of left middle cerebral artery (principal); J96.01 Acute respiratory failure with hypoxia; I48.91 Unspecified atrial fibrillation; I10 Essential (primary) hypertension; R47.01 Aphasia; G89.29 Other chronic pain; M25.562 Pain in left knee; M54.5 Low back pain; R29.810 Facial weakness; Z66 Do not resuscitate; Z51.5 Encounter for palliative care; M54.30 Sciatica, unspecified side
CPT/HCPCS: 31500; 36600; 51702; 61645; 70450; 70496; 70498; 70553; 71045; 76937; 80048; 80053; 80061; 80307; 81001; 82435; 82550; 82565; 82607; 82805; 82947; 82948; 83735; 83880; 84100; 84132; 84295; 84439; 84443; 84484; 84520; 85014; 85018; 85025; 85384; 85610; 85652; 85730; 86038; 86592; 86850; 86900; 86901; 87641; 93005; 93225; 93226; 93306; 94002; 94003; 94640; 94664; 96374; 96375; A9579; C1760; C1769; C1887; C1894; J0282; J1100; J1170; J1644; J1940; J1980; J2250; J2370; J2997; J3010; J3475; J3480; J7030; J7040; J7050; J7060; Q9967